=== PATIENT | female | born 1940 | race Caucasian/White ===

== ENCOUNTER 2016-12-27 03:42 | Emergency (ER) | payer MEDICARE, OTHER ==
[~2016-12-27] VITALS: Ht 154.9 cm; Wt 79.5 kg
[~2016-12-27 03:42] MED LIST: ASP81TEC PO; DIL4 PO; DULO30C PO; FLE10 PO; FURO20TA PO; GABA100C PO; LISI40TA13 PO; SYN75 PO; TRAZ-146 PO
[2016-12-27] MEDS ORDERED: Ondansetron 2 mg/mL 2 mL Inj IVPUSH ONE (03:45)
[2016-12-27] MEDS ORDERED: Nitroglycerin 2% 1 Gm Ointment TOPICAL ONE (03:45)
[2016-12-27 03:46] VITALS: BP 97/51; PULSE 76; RESP 16; O2SAT 95
[2016-12-27 04:01] LABS: BASOPHILS % (AUTO) 0.2 % (0-3); EOSINOPHILS % (AUTO) 0.4 % (0-5); MONOCYTES % (AUTO) 2.7 % (4-12); Mean Corpuscular Hemoglobin 30.8 pg (27.0-35.0); Mean Corpuscular Volume 95.2 fL (81-100); NEUTROPHILS % (AUTO) 75.4 % (40-74); Platelet Count 167 bil/L (150-400)
[2016-12-27 04:18] LABS: INR 1.03 ratio
[2016-12-27 04:24] LABS: TROPONIN T 0.01 ug/L (0.0-0.011)
--- NOTE | 2016-12-27 04:24 | ED.REPORT ---
HPI-Chest Pain 40 and Over Date of Service Dec 27, 2016 ED Provider: Zachary Limon MD Ms. Razo is a 76 y/o woman with history of congestive heart failure and hypertension who presents to the emergency department with chest pain that started prior to arrival when she woke up from her sleep with 10/10 whole chest pain that radiated straight to her back. It decreased to 5/10 when she was moved by EMS from her garage into the ambulance prior to receiving nitroglycerin. In route to the emergency department, she received 324 mg aspirin and one spray of nitroglycerin, which did not further relieve her chest pain, and EKG did not show any ST changes. Currently, she rates her pain as a 4 out of 10. She describes it as chest pressure that is mostly on the right side in her right shoulder, right arm, neck, and into her back. She has not experienced chest pain like this before. She was seen on December 19 at [facility] for chest pain and the discharge instructions that the patient has state that chest x-ray, CT scan and blood work were reassuring. She had associated nausea and "smelled something funny". She had heartburn last night. No vomiting, diaphoresis, or shortness of breath. She takes a baby aspirin daily. Her left leg has extensive bruising, but she does not remember a specific injury. Patient believes that she injured it in her sleep. At [facility], no DVT was seen. Patient has been taking prednisone for temporal arteritis since September 2016. Nursing Notes Stated Complaint: CHEST PAIN Chief Complaint: Chest Pain Nursing Notes Reviewed: Yes Allergies: Coded Allergies: Penicillins (Verified Allergy, Severe, swelling/itch, 01/14/11) Scheduled Aspirin-Expunged Drug, Do Not Renew! (Aspirin EC-Expunged Drug, Do Not Renew!) 81 Mg Tablet 81 MG PO DAILY Cyclobenzaprine-Expunged Drug, Do Not Renew! (Flexeril-Expunged Drug, Do Not Renew!) 10 Mg Tablet 10 MG PO TIDP Duloxetine-Expunged Drug, Do Not Renew! (Cymbalta-Expunged Drug, Do Not Renew!) 30 Mg Capsule.dr 30 MG PO HS Furosemide-Expunged Drug, Do Not Renew! (Lasix-Expunged Drug, Do Not Renew!) 20 Mg Tablet 20 MG PO AM Gabapentin-Expunged Drug, Do Not Renew! (Neurontin-Expunged Drug, Do Not Renew! ) 100 Mg Capsule 100 MG PO HS Levothyroxine-Expunged Drug, Do Not Renew! (Synthroid-Expunged Drug, Do Not Renew!) 75 Mcg Tablet 75 MCG PO AM Lisinopril-Expunged Drug, Do Not Renew! (Lisinopril-Expunged Drug, Do Not Renew! ) 40 Mg Tablet 40 MG PO AM Trazodone-Expunged Drug, Do Not Renew! (Trazodone-Expunged Drug, Do Not Renew!) 100 Mg Tablet 100 MG PO HS Scheduled PRN Hydromorphone-Expunged Drug, Do Not Renew! (Hydromorphone-Expunged Drug, Do Not Renew!) 4 Mg Tablet 4 MG PO QID PRN PRN General Time Seen by MD: 03:46 Chief Complaint Chest pain Hx Obtained From: Patient, EMS Arrived By: Ambulance Sudden in Onset?: Yes Past Medical History Past Medical History Temporal arteritis Reports: Congestive heart failure, GERD, Hypertension, Denies: Diabetes mellitus Past Surgical History Reports: Appendectomy, Hysterectomy, Tonsillectomy Reports: Gastric bypass Smoking History Never Smoker Social History Alcohol Use: Denies alcohol use Drug Use: Denies drug use Ambulatory Status Walker Review of Systems Constitutional: Denies: Chills, Fever Respiratory: Denies: Non-productive cough, Shortness of breath Cardiovascular: Reports: Chest pain, Edema, Denies: Palpitations GI: Reports: Nausea, Denies: Abdominal pain, Diarrhea, Vomiting Musculoskeletal: Reports: Back pain Skin: Reports Bruising, Denies Diaphoresis Neurologic: Denies: Abnormal movement, Focal weakness, Numbness Psychiatric: Denies: Change mental status Physical Exam Initial Vital Signs Vital Signs (First) Date Time Temp Pulse Resp B/P Pulse Ox O2 Delivery O2 Flow Rate FiO2 12/27/16 03:46 37.3 76 16 97/51 95 Room Air Initial VS: Reviewed Head / Eyes: Atraumatic, Normocephalic, PERRL ENT: Mucous membranes moist, Conjunctiva normal, No scleral icterus Skin: Warm, Dry, No cyanosis Neurologic: Alert, Oriented, Nonfocal Psychiatric: Mood/affect normal, Behavior normal, Normal thought content General/Constitutional: Awake, Alert, Cooperative Distress / Hydration: Positive: Distress mild Respiratory / Chest: Breath sounds NL, Breath sounds = bilat, No respiratory distress, No rales, No rhonchi, No wheezing Cardiovascular: Heart rate NL, Regular rhythm, Heart sounds NL, No gallop, No murmurs, No rubs Abdomen: Soft, Non-tender, No guarding, No rebound, BS normoactive Flank / Spine / Paraspinal: Positive: Thorac paraspinal tend... (Mid on right) Left Thigh: Positive: Ecchymosis present Right Leg / Calf: Positive: Swelling present... (Mild) Left Leg / Calf: Positive: Ecchymosis present, Swelling present... (Mild) Interpretation & Diagnostics Interpretation & Diagnostics: EKG shows RBBB but no changes compared to previous EKG, no concerning ST changes CXR shows surgical changes in the gastric region, small hiatal hernia, no acute cardiopulmonary changes Lab Results Interpretation Result Diagram: 12/27/16 0347 12/27/16 0347 Test 12/27/16 03:47 12/27/16 06:15 White Blood Count 9.0th/mm3 (3.8-10.1) Red Blood Count 3.73mil/mm3 (3.90-5.20) Hemoglobin 11.5g/dL (12.0-15.6) Hematocrit 35.5% (35.0-46.0) Mean Corpuscular Volume 95.2fL (81-100) Mean Corpuscular Hemoglobin 30.8pg (27.0-35.0) Mean Corpuscular Hemoglobin Concent 32.4% (32.0-37.0) Red Cell Distribution Width 16.0% (12.3-15.4) Platelet Count 167bil/L (150-400) Neutrophils (%) (Auto) 75.4% (40-74) Lymphocytes (%) (Auto) 16.9% (14-46) Monocytes (%) (Auto) 2.7% (4-12) Eosinophils (%) (Auto) 0.4% (0-5) Basophils (%) (Auto) 0.2% (0-3) Prothrombin Time 11.0sec (8.1-12.5) Prothromb Time International Ratio 1.03ratio Activated Partial Thromboplast Time 20.0sec (22.8-33.0) Sodium Level 138mEq/L (134-144) Potassium Level 3.3mEq/L (3.5-5.2) Chloride Level 94mEq/L (97-108) Carbon Dioxide Level 31mmol/L (18-29) Blood Urea Nitrogen 31mg/dL (8-27) Creatinine 0.85mg/dL (0.57-1.00) Estimat Glomerular Filtration Rate 93mL/min (>59) Glucose Level 122mg/dL (60-99) Calcium Level 10.7mg/dL (8.5-10.1) Magnesium Level 2.2mg/dL (1.6-2.6) Total Bilirubin 1.0mg/dL (0.0-1.2) Aspartate Amino Transf (AST/SGOT) 24U/L (0-50) Alanine Aminotransferase (ALT/SGPT) 24U/L (0-32) Alkaline Phosphatase 52U/L (25-165) Pro-B-Type Natriuretic Peptide 701.0pg/mL (0-738) Total Protein 7.1g/dL (6.4-8.4) Albumin 4.5g/dL (3.4-5.0) Re-Eval/Medical Decision Med Decision/Clinical Course 1. Chest pain -Patient received 324 mg of aspirin by EMS -Based on pt's symptoms of pain that radiated to her back and heartburn the night prior and a likely hiatal hernia on CXR, pt's chest pain likely has a gastric etiology -Initial troponin negative, repeat 3 hour troponin ordered -Initial EKG was not concerning for ACS but shows RBBB, repeat 3 hour EKG ordered -Since pt has been on prednisone since September 2016, pt was given 50 mg of Solu Cortef to aid in her stress response -Pt has received 1 dose of IV Protonix 40 mg -Patient also has received Zofran as needed for nausea, morphine for pain, and nitroglycerin -Patient was seen at [facility] on 12/19/2016 for chest pain as well -If repeat troponin and EKG remain unchanged and her pain has resolved, consider discharging patient home and advise patient to call her primary care provider Thursday morning in order to arrange a nuclear cardiac stress test with imaging as an outpatient. Time of Eval: 05:34 Patient Status: Condition improved Re-Evaluation/Progress Note: Patient is rechecked. She is informed of her lab results and recommended treatment plan. All of the patient's questions are addressed. She understands and agrees with the treatment plan. DDx: ACS, aortic dissection, pneumothorax, GERD,musculoskeletal, pulmonary embolism, pneumonia Discharge & Departure Shift Change Sign-Out Patient Care Transferred: Yes Referrals: Kg Spivey MD (PCP) Care Transferred to: Dr. Naranjo Care Transferred at: 06:00 Scribe Attestation Portions of this note were transcribed by Shelia Valdivia. I, Dr. Limon personally performed the history, physical exam and medical decision-making; I reviewed and confirmed the accuracy of the information in the transcribed note. Signed by: Radha Cuevas, 12/27/16 0600. Attending Statement As attending of record for this patient, I conducted an independent history and physical examination, and concur with the resident documentation as detailed above, and as amended. copies to: Kg Spivey MD, Marissa L DO Dec 27, 2016 04:24 Zachary Limon MD Dec 27, 2016 05:33 SHELIA VALDIVIA Dec 27, 2016 05:34
[2016-12-27] MEDS ORDERED: Ondansetron 2 mg/mL 2 mL Inj IVPUSH PRN (04:25)
[2016-12-27] MEDS ORDERED: Pantoprazole 4 mg/mL 10 mL Inj IVPUSH ONE (04:25)
[2016-12-27 04:35] LABS: Magnesium 2.2 mg/dL (1.6-2.6)
[2016-12-27 05:02] VITALS: BP 114/44; PULSE 64; RESP 18; O2SAT 95
[2016-12-27] MEDS ORDERED: Hydrocortisone 50 mg/mL 2 mL Inj IVPUSH ONE (06:00)
[2016-12-27] MEDS ORDERED: OMEP20TA86 PO (07:15)
[2016-12-27 07:47] VITALS: BP 112/46; PULSE 62; RESP 13; O2SAT 93
--- NOTE | 2016-12-27 08:01 | DRSVH ---
PROCEDURE: X-RAY CHEST ONE VIEW, PORTABLE ([id number]) INDICATIONS: Chest pain TECHNIQUE: One view of the chest was acquired. COMPARISON: [facility], CR, XR CHEST 2V AP/PA AND LAT, 12/19/2016, 8:12 AM. [facility], CR, CHEST 1VW (PORTABLE), 07/03/2014, 13:42. FINDINGS: Surgical changes and devices: Postsurgical changes in the left upper quadrant. Lungs and pleura: No pleural effusions or pneumothorax. Lungs are clear. Mediastinum: Mediastinal contours appear normal. Heart size is normal. Bones and chest wall: No suspicious bony lesions. Overlying soft tissues appear unremarkable. IMPRESSION: No acute cardiopulmonary disease. Dictated by: Jorge Penn M.D. on 12/27/2016 at 7:59 Approved by: Jorge Penn M.D. on 12/27/2016 at 8:00
== END 2016-12-27 07:35 | disposition home or self-care (01) ==
LOC: SED 03:42
DX: R10.13 Epigastric pain (principal); R07.89 Other chest pain; M54.6 Pain in thoracic spine; I11.0 Hypertensive heart disease with heart failure; I50.9 Heart failure, unspecified; K21.9 Gastro-esophageal reflux disease without esophagitis; Z88.0 Allergy status to penicillin
CPT/HCPCS: 36415; 71010; 80053; 83036; 83735; 83880; 84484; 85025; 85610; 85730; 93005; 96374; 96375; 99285; J1720; J2270; J2405

== ENCOUNTER 2017-04-22 09:34 | Inpatient (IN) | payer MEDICARE, OTHER ==
[2017-04-22] VITALS (8 sets, daily range): BP systolic 150–172; BP diastolic 68–73; PULSE 60–78; RESP 12–20; O2SAT 95–98
[~2017-04-22] VITALS: Ht 157.5 cm; Wt 86.1 kg
[~2017-04-22 09:34] MED LIST changes: +OMEP20TA86 PO
[2017-04-22] MEDS: 0.9% Sodium Chloride 1,000 ML IV SCH ×2 (11:33→16:47)
[2017-04-22] MEDS ORDERED: Polyethylene Glycol (PEG) 17 Gm Powder PO PRN (11:35)
[2017-04-22] MEDS ORDERED: Alum-Mag Hydrox-Simeth 30 mL Suspension PO PRN (11:35)
[2017-04-22] MEDS ORDERED: LATA2.5D6 BOTH_EYES (11:38)
[2017-04-22] MEDS ORDERED: METH2.5T (11:38)
[2017-04-22] MEDS ORDERED: OMEG1CAP56 PO (11:38)
[2017-04-22] MEDS ORDERED: TORS20TA3 PO (11:38)
[2017-04-22] MEDS ORDERED: FLUO40CA PO (11:38)
[2017-04-22] MEDS ORDERED: CARV3.122 PO (11:38)
[2017-04-22] MEDS ORDERED: ZOV800 PO (11:38)
[2017-04-22] MEDS ORDERED: PSYL1PAC10 PO (11:41)
[2017-04-22] MEDS ORDERED: ONDA-53 PO (11:41)
[2017-04-22] MEDS ORDERED: POTA20TA16 PO (11:41)
[2017-04-22] MEDS ORDERED: ASPI-973 PO (11:42)
[2017-04-22] MEDS ORDERED: LEVO75TA4 PO (11:43)
[2017-04-22] MEDS ORDERED: HYDR4TAB PO (11:43)
[2017-04-22] MEDS: Ondansetron 2 mg/mL 2 mL Inj IVPUSH PRN ×3 (11:46→16:07)
[2017-04-22 12:05] LABS: BASOPHILS % (AUTO) 0.2 % (0-3); EOSINOPHILS % (AUTO) 0.1 % (0-5); MONOCYTES % (AUTO) 0.7 % (4-12); Mean Corpuscular Hemoglobin 28.9 pg (27.0-35.0); Mean Corpuscular Volume 91.4 fL (81-100); NEUTROPHILS % (AUTO) 92.1 % (40-74); Platelet Count 428 bil/L (150-400)
[2017-04-22] MEDS ORDERED: HYDROmorphone 1 mg/mL Inj IVPUSH PRN ×2 (12:25→14:30)
--- NOTE | 2017-04-22 12:33 | NUR ---
Arrival to 1002 Direct admit from [facility] at 1115. Pt was drowsy upon arrival with no c/o pain or nausea. Family was not at bedside at this time so admission was done to the best of our abilities. Pain and violent dry heaving returned at 1200; 4mg Zofran given and was ineffective, additional 4mg given along with 1mg Dilaudid at 1230; pt was immediately relieved. Pt is hot to touch and requesting fan but is afebrile. Blood cultures were drawn. Family is now at bedside.
[2017-04-22 12:36] LABS: Magnesium 2.4 mg/dL (1.6-2.6)
--- NOTE | 2017-04-22 13:10 | PCM.HPMED ---
Subjective Date of Service April 22, 2017 Primary Provider: Admitting Physician: Marcell Lundberg MD Primary Care Physician: Kg Spivey MD Attending Physician: Marcell Lundberg MD Admit Status: Direct Admit, Admit to Bent Team Chief Complaint: Epigastric pain/ 2ddays Nausea and vomiting/2 days History of Present Illness: 76-year-old lady with past medical history of hypertension, hypothyroidism, history of ischemic colitis, history of gastric bypass surgery, history of pericarditis, chronic hypercalcemia, alpha-1 antitrypsin gene carrier, presented to [facility] with epigastric pain, nausea and vomiting of 2 days. Patient states she developed progressively worsening epigastric pain. Pain is continuous,10/10, nonradiating. She also has nausea and episodes of vomiting. Denies fever. Denies diarrhea. Denies other complaints. Denies alcohol drinking. Has history of cholecystectomy in 70s. [facility] ED course: Unremarkable vital signs wbc 12.7, hemoglobin 12.9, sodium 137, potassium 2.9, chloride 100, bicarbonate 33, BUN12, creatinine 0.84, protein 7.2, albumin 2.8, globulin 4.4, calcium 9.5 , corrected calcium 10.5 Tbili 0.8, alkaline phosphatase 101, ALT 25, AST 43,lipase 3032, troponin negative, CPK 21, magnesium 1.6 CT abdomen pelvis reportedly showed acute pancreatitis, no mention of dilated biliary system IV fluid given , Dilaudid for pain given. Potassium and magnesium repeleted. Transfer to [facility] due to bed unavailability Review of Systems: A comprehensive review of systems performed, pertinent positives and negatives included in history of present illness Allergies Coded Allergies: Penicillins (Verified Allergy, Severe, swelling/itch, 01/14/11) KISHOR Inhibitors (Verified Allergy, Intermediate, 04/22/17) Citalopram Analogues (Verified Allergy, Intermediate, 04/22/17) codeine (Verified Allergy, Intermediate, 04/22/17) gabapentin (Verified Allergy, Intermediate, 04/22/17) hydrochlorothiazide (Verified Allergy, Intermediate, 04/22/17) hydrocodone (Verified Allergy, Intermediate, 04/22/17) nitrofurantoin (Verified Allergy, Intermediate, 04/22/17) Home Medications Acyclovir when cold sores Aspirin 81 mg daily Coreg 3.125 mg bid Fluoxetine 40 mg by mouth daily Dilaudid 4 mg by mouth as needed for pain Latanoprost eyedrop Levothyroxine 75 daily [place]-3 1000 mg capsule daily before breakfast Torsemide 60 mg by mouth daily for history of pericardial effusion Potassium chloride 20 daily PMH alpha-1 antitrypsin gene carrier. Patient learned about it when her son was diagnosed with lung failure due to alpha-1 antitrypsin deficiency. Her is also carier . Son underwent double lung transplant 10 years ago at age 35 but transplant failing currently hypertension, hypothyroidism, history of ischemic colitis, history of gastric bypass surgery, history of pericarditis, chronic hypercalcemia, History of stroke at age 23 History of arthritis status post joint replacement Remote history of asthma Vitamin D deficiency Recurrent cold sores Surgical History Remote history of gastric bypass surgery for obesity in Hernia repair Appendectomy Cholecystectomy Right knee replacements Hysterectomy Carpal tunnel surgery bilateral Tonsillectomy Temporal artery biopsy right side 2015 Right-sided Cardiac catheterization february 2017 Family History Son with alpha 1 ANTITRYPSIN DEFICIENCY requiring lung transplant Social History Hx Alcohol Use: No Hx Substance Use: No Hx Tobacco Use: No Smoking Status: Never Smoker Exam Vital Signs Vital Sign - Last Date Time Temp Pulse Resp B/P Pulse Ox O2 Delivery O2 Flow Rate FiO2 04/22/17 12:15 69 04/22/17 11:14 35.9 20 150/68 97 Nasal Cannula 2.00 Exam Gen. patient is in pain, mild distress due to pain HEENT: Head is normocephalic atraumatic, Pupils equal and reactive, extraocular movements intact, Lungs clear to auscultation bilaterally Heart regular rate and rhythm without murmurs gallops or rubs Abdomen epigastric tenderness Extremities pulses are present dorsalis pedis posterior tibialis and radial. tSkin is warm and dry there are no rashes, Psych alert and oriented to person place and time Neuro cranial nerves II through XII are grossly intact Lymph: There is no lymphadenopathy appreciated in the cervical supra infraclavicular regions : joy in place Lab and Diagnostics Result Diagram: 04/22/17 1201 04/22/17 1201 X-Rays, CTs and MRIs CT abdomen and pelvis on 04/22 at [facility] shows acute pancreatitis Assessment & Plan 76-year-old lady with past medical history of hypertension, hypothyroidism, history of ischemic colitis, history of gastric bypass surgery, history of pericarditis, chronic hypercalcemia, alpha-1 antitrypsin gene carrier, presented to [facility] with epigastric pain, nausea and vomiting of 2 days. #Acute pancreatitis, poa -Unknown etiology. Probably related to her chronic hypercalcemia or remote history of gastric bypass surgery. Denies alcohol. Had cholecystectomy. -LFT normal but will do MRCP given unexplained pancreatitis -Initial lipase 3032, CT consistent with acute pancreatitis -Continue IV fluids, NS at 150ml/h -Pain control with Dilaudid WEAVE ROOM SUPERVISOR, uncontrolled with intermittent injections. Patient also on home Dilaudid by mouth -Nothing by mouth -Protonix IV twice a day, Zofran and Reglan # Hyperkalemia and low magnesium -Initial K 2.9 and magnesium 1.6 repleted -Due to diuretics. Patient on torsemide 60 mg by mouth daily for history of pericardial effusion # Hypercalcemia, chronic -Corrected calcium 10.5 - will send SPEP,vit D, PTH -Possible culprit of pancreatitis # Hypertension -hold home medications #Hypothyroidism Continue Synthroid # History of pericardial effusion -Hold diuretics for now. Will consider doing echo prior to discharge and decide on diuretics # Prophylaxis -Lovenox and Protonix Patient admitted under inpatient status with expected length of stay > 2 midnights for severity of present symptoms, complexities of treatment plan and risk for adverse events DNR/DNI , very faint from patient. She names her daughter Felicity as POA tel [phone] VTE Prophylaxis: Sub-Q Enoxaparin Resuscitation Status: DNR/DNI:Do Not Resuscitate/Intubate Time spent 60 minutes copies to: Kg Spivey MD, Melaku MD April 22, 2017 13:10
[2017-04-22] MEDS ORDERED: HYDROmorphone 1 mg/mL Inj IVPUSH ONE (13:50)
[2017-04-22] MEDS ORDERED: Lactated Ringer's 1,000 ML IV ONE (14:10)
[2017-04-22] MEDS ORDERED: MetoCLOpramide 5 mg/mL 2 mL Inj IVPUSH PRN (14:20)
[2017-04-22] MEDS: HYDROmorphone PCA 0.2 mg/mL 30 mL Inj IV PRN (14:51)
[2017-04-22] MEDS: Pantoprazole 4 mg/mL 10 mL Inj IVPUSH SCH (16:47)
--- NOTE | 2017-04-22 19:55 | DRSVH ---
PROCEDURE: MR ABDOMEN MRCP INDICATIONS: 76 year-old female with unexplained pancreatitis. TECHNIQUE: Coronal HASTE through the abdomen, axial 2-D FLASH in- and [id number], and breath-hold T2 FSE with fat saturation through the biliary system and pancreas. Oblique coronal and axial thin-slice HASTE, radial thick-slab HASTE centered on the extrahepatic bile ducts. Intravenous secretin: Not requested. COMPARISON: [facility], CT, CT ABDOMEN PELVIS WO CONTRAST, 10/31/2016, 6:57 PM. FINDINGS: Image quality: Several sequences are degraded by respiratory motion. Pancreas and biliary system: Intra- and extra-hepatic biliary ducts are non dilated, measuring up to 6 mm. No common bile duct stones. Pancreas is normal in morphology, with moderate surrounding inter stitial edema, extending into the right and left anterior pararenal spaces. The main pancreatic duct is nondilated, and therefore not well-visualized. No discrete peripancreatic fluid collections. Gall bladder is surgically absent. Other solid organs: Liver and spleen are normal in size. No adrenal nodules. Both kidneys are norm al in size, without hydronephrosis. Inferior left renal cortical cyst measures 3.9 x 2.7 cm. Nodes and vessels: No retroperitoneal or mesenteric adenopathy by size criteria. Aorta and inferior vena cava are normal in size. Bowel and peritoneum: Unenhanced bowel loops are normal in caliber. Patient is status post presumed gastric bypass surgery, better seen on comparison CT scan images. No free fluid. Lung bases: No basal pleural effusions. Heart size is normal. Bones and soft tissues: No ventral hernias. Bone marrow is of normal overall signal. IMPRESSION: 1. Findings of acute pancreatitis, without discrete peripancreatic fluid collections. 2. No intra-or extrahepatic biliary ductal dilation or stones, status post cholecystectomy. Pancreati c ducts are nondilated and not well-seen, and the 3. Nondistended main pancreatic duct is not well-visualized, and therefore any congenital variants rosas ch as pancreas divisum cannot be excluded. 4. 3.9 cm inferior left renal cortical simple cyst. Dictated by: Randy Sahu M.D. on 04/22/2017 at 19:43 Approved by: Randy Sahu M.D. on 04/22/2017 at 19:54
--- NOTE | 2017-04-22 23:22 | NUR ---
Return to floor Patient returned from MRI at 190. Report from day shift nurse states that patient received 1mg Ativan IVP due to claustrophobia. When patient returned to floor she was very sleepy and difficult to awaken. SUPERVISOR LIVESTOCK YARD applied and Tele placed back on. classroom monitor states HR SR 76. O2 sats 98% on 2L O2 via NC. Allowed patient to rest until 2029 and then attempted to wake. Stimulation was necessary to awaken patient. Patient was confused and asked where she was. Reoriented patient to her room, and shortly after she fell back to sleep. Patient is currently sleeping and appears comfortable. SUPERVISOR LIVESTOCK YARD applied; HR 87 and O2 sats 96%. Will continue to closely monitor. Addendum: 04/23/17 at 0056 by SHELTON GEE RN Patient has become more alert as the shift has progressed, and has been call light appropriate. Complains of abdominal pain, encouraged to use WELT DRAWER for pain control. Difficult to assess pt due to hearing aid battery being ,and severe difficulty hearing. Patient states will have daughter bring new hearing aid battery in the morning. Care continues
[2017-04-23] VITALS (11 sets, daily range): BP systolic 173–192; BP diastolic 81–104; PULSE 94–108; RESP 16–24; O2SAT 96–98
[2017-04-23] MEDS: 0.9% Sodium Chloride 1,000 ML IV SCH ×3 (00:29→20:16)
--- NOTE | 2017-04-23 00:56 | NUR ---
BP Patients BP has been elevated this evening. 172/73 and 174/81. Patient encouraged to use SELF PAY COLLECTOR to control abdominal pain, and has been appropriate doing so. paged of high BPs. No new orders at this time. Care continues.
[2017-04-23] MEDS: Ondansetron 2 mg/mL 2 mL Inj IVPUSH PRN ×2 (02:12→10:06)
--- NOTE | 2017-04-23 05:34 | NUR ---
HR/SOB Patients HR has increased as the night progressed, currently at 105. Pt complains of slight SOB, and lungs sound slightly decreased. Denies chest pain. paged and states to decrease fluid rate to 100cc/hr. Will share this with the day shift nurse. Care continues.
[2017-04-23 06:14] LABS: Vitamin D, 25-Hydroxy 16.9 ng/mL (30.0-100.0)
[2017-04-23 07:16] LABS: BASOPHILS % (AUTO) 0.1 % (0-3); EOSINOPHILS % (AUTO) 0 % (0-5); MONOCYTES % (AUTO) 2.1 % (4-12); Mean Corpuscular Volume 86.5 fL (81-100); NEUTROPHILS % (AUTO) 93.2 % (40-74); Platelet Count 463 bil/L (150-400)
[2017-04-23 07:45] LABS: Magnesium 2.2 mg/dL (1.6-2.6); Phosphorus 3.7 mg/dL (2.5-4.9)
[2017-04-23] MEDS: Pantoprazole 4 mg/mL 10 mL Inj IVPUSH SCH ×2 (08:59→16:53)
[2017-04-23] MEDS: Omega-3 Fatty Acids 1,000 mg Capsule PO SCH (09:59)
--- NOTE | 2017-04-23 10:25 | NUR ---
Hearing Aid: Pt's caregiver taking Patients hearing aid home. 09/23 am. Addendum: 04/23/17 at 1053 by FRANCISCO BOWIE RN Cancel above note: Hearing AId is still at bedside.
--- NOTE | 2017-04-23 11:40 | PCM.PNMED ---
Subjective Date of Service April 23, 2017 Subjective Continues to have epigastric pain. Nausea improving. Will start clear liquid diet. Lower IV fluid. Exam Vital Signs Vital Sign - Last Date Time Temp Pulse Resp B/P Pulse Ox O2 Delivery O2 Flow Rate FiO2 04/23/17 09:47 36.7 107 18 183/104 97 Nasal Cannula 2.00 Intake and Output 04/22/17 04/22/17 04/23/17 Cumulative From/Thru 15:00 23:00 07:00 04/22/17 12:46 - 04/23/17 06:14 Intake Total 1527 ml 1622 ml 3149 ml Output Total 400 ml 450 ml 850 ml Balance 1127 ml 1172 ml 2299 ml Intake Oral 0 ml 0 ml IV Total 1527 ml 1622 ml 3149 ml Output Urine Total 400 ml 450 ml 850 ml # Bowel Movements 0 0 Exam Gen. patient is in pain, mild distress due to pain HEENT: Head is normocephalic atraumatic, Pupils equal and reactive, extraocular movements intact, Lungs clear to auscultation bilaterally Heart regular rate and rhythm without murmurs gallops or rubs Abdomen epigastric tenderness Extremities pulses are present dorsalis pedis posterior tibialis and radial. tSkin is warm and dry there are no rashes, Psych alert and oriented to person place and time Neuro cranial nerves II through XII are grossly intact Lymph: There is no lymphadenopathy appreciated in the cervical supra infraclavicular regions : joy in place IVs and Medications Medications Reviewed: Medications were reviewed in detail Lab and Diagnostics Result Diagram: 04/23/17 0702 04/23/17 0702 X-Rays, CTs and MRIs CT abdomen and pelvis on 04/[address] [facility] shows acute pancreatitis PROCEDURE: MR ABDOMEN MRCP INDICATIONS: 76 year-old female with unexplained pancreatitis. IMPRESSION: 1. Findings of acute pancreatitis, without discrete peripancreatic fluid collections. 2. No intra-or extrahepatic biliary ductal dilation or stones, status post cholecystectomy. Pancreatic ducts are nondilated and not well-seen, and the 3. Nondistended main pancreatic duct is not well-visualized, and therefore any congenital variants such as pancreas divisum cannot be excluded. 4. 3.9 cm inferior left renal cortical simple cyst. Dictated by: Randy Sahu M.D. on 04/22/2017 at 19:43 Assessment & Plan 76-year-old lady with past medical history of hypertension, hypothyroidism, history of ischemic colitis, history of gastric bypass surgery, history of pericarditis, chronic hypercalcemia, alpha-1 antitrypsin gene carrier, presented to [facility] with epigastric pain, nausea and vomiting of 2 days. #Acute pancreatitis, poa -Unknown etiology. Probably related to her chronic hypercalcemia or remote history of gastric bypass surgery. Denies alcohol. Had cholecystectomy. -LFT normal ,MRCP no biliary obstruction -Initial lipase 3032, CT consistent with acute pancreatitis -Continue IV fluids, NS at 60 ml/h now. 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 Patient also on home Dilaudid by mouth -Start clear liquid diet and advance as tolerated -Protonix IV twice a day, Zofran and Reglan # Hyperkalemia and low magnesium -Initial K 2.9 and magnesium 1.6 repleted -Due to diuretics. Patient on torsemide 60 mg by mouth daily for history of pericardial effusion # Hypercalcemia, chronic -Corrected calcium 10.5 - will send SPEP,vit D, PTH -Possible culprit of pancreatitis -Vitamin D level 16, started vitamin D # Hypertension -held home medications. Resume today #Hypothyroidism Continue Synthroid # History of pericardial effusion -Hold diuretics for now. Will get echo and decide on diuretics # Prophylaxis -Lovenox and Protonix Patient admitted under inpatient status with expected length of stay > 2 midnights for severity of present symptoms, complexities of treatment plan and risk for adverse events DNR/DNI , verified from patient. She names her daughter Felicity as POA tel [phone] Disposition discharge in 2- 3 days VTE Prophylaxis: Sub-Q Enoxaparin VTE Mechanical Devices: Intermittant Pneumatic CD Resuscitation Status: DNR/DNI:Do Not Resuscitate/Intubate Marcell Lundberg MD April 23, 2017 11:40
--- NOTE | 2017-04-23 13:47 | DRSVH ---
PROCEDURE: X-RAY CHEST ONE VIEW, PORTABLE ([id number]) INDICATIONS: dyspnea TECHNIQUE: One view of the chest was acquired. COMPARISON: [facility], CR, XR CHEST 1VW (PORTABLE), 12/27/2016, 3:41. FINDINGS: Surgical changes and devices: Multiple epigastric surgical clips as well as clips in the right upper quadrant. Lungs and pleura: No pleural effusions or pneumothorax. Lung volumes are low and bibasilar airspace opacities present. Mediastinum: Mediastinal contours appear normal. Heart size is normal. Bones and chest wall: No suspicious bony lesions. Overlying soft tissues appear unremarkable. IMPRESSION: Bibasilar atelectasis versus aspiration or pneumonia. Correlate clinically. Dictated by: Xavi Spencer RRA Interpreted: Janelle Tang MD on 04/23/2017 at 13:45 Transcribed by: MARCOS on 04/23/2017 at 13:47 Approved by: Janelle Tang MD, PhD on 04/23/2017 at 15:23
--- NOTE | 2017-04-23 15:02 | NUR ---
GI Diet advanced to clears. Tolerates ice water, retches with any other fluids. No real emesis. Reports abd pain 05/09, I reinforced teaching about PILLOWCASE SEWER. Cortez discontinued, awaiting spontaneous voidl
--- NOTE | 2017-04-23 17:06 | DRSVH ---
[facility] [address] [place] [place] [address] Echocardiogram Report Name: ELLE MARINELLItodilia Hernandez ate: 04/23/2017 Height: 62 in Hospital Exam Location: [facility] Weight: 150 lb Gender: Female BSA: 1.7 m2 : 1940 Age: 76 yrs BP: 175/82 mmHg Reason For Study: History of pericardial effusion Ordering Physician: Performed By: Atiya FERNANDOIST [facility] Interpretation Summary Left ventricular wall thickness is borderline increased. The ejection fraction is estimated to be 60-65%. The aortic valve is moderately calcified. There is moderate aortic stenosis. There is mild aortic regurgitation. Right ventricular systolic pressure is estimated to be 32 mmHg plus the clinically estimated CVP which cannot be estimated on this exam. Procedure: A two-dimensional transthoracic echocardiogram with color flow and Doppler was performed. The study quality was technically difficult. A contrast injection of Definity was performed to improve assessment of LV function. There is no prior echocardiogram noted for this patient. The patient was in normal sinus rhythm during the exam. Left Ventricle: The left ventricle is normal in size. Left ventricular wall thickness is borderline increased. The ejection fraction is estimated to be 60-65%. Assessment of diastolic parameters indicates a relaxation abnormality of the left ventricle, consistent with normal filling pressures. Right Ventricle: The right ventricle is not well visualized. Atria: Both atria are normal in size. Mitral Valve: There is mild mitral annular calcification. There is trace mitral regurgitation. Aortic Valve: The aortic valve is moderately calcified. The aortic valve is trileaflet. The calculated aortic valve area is 1.1 cm2. The aortic valve area is 1.2 centimeters squared by planimetry. The peak aortic velocity is 3.4 m/sec. The aortic valve mean gradient is 22 mmHg. There is moderate aortic stenosis. There is mild aortic regurgitation. Tricuspid Valve: The tricuspid valve leaflets are thin and pliable. There is trace tricuspid regurgitation. Right ventricular systolic pressure is estimated to be 32 mmHg plus the clinically estimated CVP which cannot be estimated on this exam. Pulmonic Valve: The pulmonic valve is not well visualized. There is a trace or physiologic amount of pulmonic regurgitation. Great Vessels: The aortic root is normal size. The ascending aorta is mildly enlarged. The inferior vena cava was not visualized. Pericardium/ Pleura There is no pericardial effusion. MMode/2D Measurements & Calculations LVIDd: 4.0 cm RA long axis: 4.3 cm LVOT diam LVIDs: 2.6 cmLA A2 area: 12.8 cm FS: 35.3 % LA A4 area: 13.4 cm RA area: 8.9 cm AoV Opening IVSd: 1.3 cm LA length (vol): 4.8 cm RA vol: 15.8 ml LVPWd: 1.0 cmLA vol: 30.3 ml RA : 9.4 ml/m2 Ao root diam LA vol index: 17.9 ml/m2 Aortic Jxn asc Aorta Diam PATRICIA (plan) LV french. diameter/BSA LV sys. diameter/BSA (cm/m^2): 2.3 (cm/m^2): 1.5 : 1.2 cm2 Doppler Measurements & Calculations Ao V2 max MV E max luigi MV E/A: 0.45 TR max luigi : 340.8 cm/sec : 46.8 cm/sec Med Peak E' Luigi : 283.6 cm/sec Ao max PG MV A max luigi TR max PG : 46.4 mmHg : 103.1 cm/sec E/E' med: 9.5 : 32.2 mmHg Ao mean PG MV P1/2t: 43.9 msec PA V2 max : 22.0 mmHg : 90.3 cm/sec LVOT Max Luigi PA mean PG : 103.0 cm/sec PATRICIA(I,D): 1.1 cm PA Accel Time sev ratio : 0.09 sec MV dec time MV P1/2t max luigi Ao V2 mean LV V1 max PG : 0.15 sec : 212.1 cm/sec MVA(P1/2t): 5.0 cm2 Ao V2 VTI: 54.9 cmLV V1 VTI PATRICIA(V,D): 0.83 cm2: 21.3 cm PA V2 mean PATRICIA indexed to BSA : 59.1 cm/sec (cm^2/m^2): 0.63 Electronically signed by: Ronan Schafer on Reading Physician:04/23/2017 05:05 PM
--- NOTE | 2017-04-23 17:20 | NUR ---
UOP Cortez discontinued. Spontaneous void of only 75mL with PVRBScan 24mL. Prior to that, only 200 mL urine from Cortez this shift. paged; aware. NS increased to 125mL/hr per new order.
--- NOTE | 2017-04-23 22:52 | ABG ---
DateTimeAnalyzed 22:48:00 -_ pH ____7.392 - 7.350 7.450 pCO2 ___45.4__ -mmHg 35.0 45.0 pO2 ___74.2__ -mmHg 69.0 116 HCO3- ___27.0__ -mmol/L 22.0 26.0 ABE ____2.1__ -mmol/L -2.0 2.0 tHb ___13.4__ -g/dL O2Hb ___93.0__ -% COHb ____1.9__ -% MetHb ____0.7__ -% sO2 ___95.5__ -% FIO2 ___34.0__ -% Drawn By MK - Date/Time Notified____ 22:51:00 -_ Liter_Flow ____4.0__ -L/min Oxygen Device 1 __CANNULA - Notified By MK - B 755 -mmHg tO2 ___17.6__ -Vol% Hay test _Positive -
[2017-04-24] VITALS (13 sets, daily range): BP systolic 145–185; BP diastolic 73–97; PULSE 90–112; RESP 18–24; O2SAT 93–97
[2017-04-24 01:35] LABS: APPEARANCE,URINE SLIGHTLY CLOUDY (CLEAR,HAZY); COLOR,URINE DARK YELLOW (YELLOW); OCCULT BLOOD,URINE TRACE (NEGATIVE)
[2017-04-24 01:36] LABS: UROBILINOGEN,URINE NORMAL (NORMAL)
--- NOTE | 2017-04-24 01:54 | NUR ---
Transfer to 2009 Patients BP at beginning of shift, 1999, was 192/99. Hospitalist notified. Evening dose of carvedilol was given, and upon reassessment BP was 188/83. Patient denies CP but does complains of SOB. Tele reports ST W/ IVCD. Sats >95% on 2L of O2 via NC but patient still having difficulty catching breath. Breathing is labored and accessory muscles are being used. RR 20-24. At 2230 BP again was 192/78, HR 104, RR 22 and o2 98% on 2L O2 via NC. Patient also appears to be more confused as the night progressed. RT contacted to assess, and ABGs were drawn. Hospitalist notified and states for patient to be transferred to second floor. Report given to Maranda Galarza RN, and patient was transferred at 2350. Belongings and chart with patient. Daughter ENRIQUE Pruitt, was contacted and notified of new room number. Care continues.
[2017-04-24] MEDS: 0.9% Sodium Chloride 1,000 ML IV SCH ×3 (04:12→20:54)
[2017-04-24 04:55] LABS: BASOPHILS % (AUTO) 0.1 % (0-3); EOSINOPHILS % (AUTO) 0.3 % (0-5); MONOCYTES % (AUTO) 3.5 % (4-12); Mean Corpuscular Hemoglobin 29.1 pg (27.0-35.0); Mean Corpuscular Volume 86.8 fL (81-100); NEUTROPHILS % (AUTO) 92.2 % (40-74); Platelet Count 326 bil/L (150-400)
[2017-04-24 05:35] LABS: Magnesium 2.1 mg/dL (1.6-2.6)
--- NOTE | 2017-04-24 06:34 | NUR ---
Arrived to unit/ Respiratory/UOP Pt arrived to [facility] 2009 around midnight from [facility], report from [facility] RN. Pt appeared dyspneic and on 6L NC, BP still elevated, oriented to self/place as [facility] nurse reported. Pt very hard of hearing and it is necessary to write things down for pt to know what staff is saying. Hearing aids not working. Pt alert and voicing needs, denied pain on arrival. MD notified of ongoing confusion and also that BP still elevated, no new orders given. NS fluids continue @125, MD aware. O2 titrated down to 3L NC, sats maintaining mid 90s, monitored on STRAPPING MACHINE TENDER. Pt still has labored breathing and appeared slightly wheezy after getting up to [facility] this morning. notified and ordered PRN nebs, pending RT to give. UA sent, urine very keyshawn w/ odor and pt only able to go very small amounts at a time. Bladder scan done by QUALITY ASSURANCE ENGINEER not showing residual. Culture pending. Tele STach 100s, up to 120s w/ activity.
[2017-04-24] MEDS: HYDROmorphone PCA 0.2 mg/mL 30 mL Inj IV PRN (07:54)
[2017-04-24] MEDS: Pantoprazole 4 mg/mL 10 mL Inj IVPUSH SCH ×2 (08:22→18:02)
[2017-04-24] MEDS: Omega-3 Fatty Acids 1,000 mg Capsule PO SCH (08:30)
[2017-04-24] MEDS: Ondansetron 2 mg/mL 2 mL Inj IVPUSH PRN ×2 (09:05→11:28)
--- NOTE | 2017-04-24 10:18 | NUR ---
Respiratory Pt assessed found supine in bed on 3LNC. Sat 97%, HR 95%, RR 22, BS clear bilaterally. Pt did not respond to arousal. BS/Oxygen did not indicate Tx at this time. Pt does have POA and is mouth breathing.
[2017-04-24] MEDS: Meropenem Inj 1,000 MG in 0.9% Sodium Chloride 50 ML IV SCH (10:22)
--- NOTE | 2017-04-24 14:47 | PCM.PNMED ---
Subjective Date of Service April 24, 2017 Rodrigo Razo is a 76-year-old lady with past medical history of hypertension, hypothyroidism, ischemic colitis, gastric bypass surgery, pericarditis, chronic hypercalcemia, alpha-1 antitrypsin gene carrier, presented to [facility] with epigastric pain, nausea and vomiting of 2 days. Currently under treatment for pancreatitis. Hospital day #3 Overnight: The patient was transferred to the [facility] due to respiratory distress. Today: The patient is having 7/10 abdominal pain but states it is improved as compared to yesterday. The patient noted nausea, vomiting, loss of apatite. She denies any shortness of breath, fever, chills, or chest pain. A comprehensive review of systems could not be completed due to the patient's severe hearing deficit. Exam Vital Signs Vital Sign - Last Date Time Temp Pulse Resp B/P Pulse Ox O2 Delivery O2 Flow Rate FiO2 04/24/17 12:00 36.5 90 18 168/75 96 Nasal Cannula 3.00 Intake and Output 04/23/17 04/23/17 04/24/17 Cumulative From/Thru 15:00 23:00 07:00 04/22/17 12:46 - 04/24/17 06:42 Intake Total 776 ml 1777 ml 5702 ml Output Total 275 ml 425 ml 1550 ml Balance 501 ml 1352 ml 4152 ml Intake Oral 100 ml 220 ml 320 ml IV Total 676 ml 1557 ml 5382 ml Output Urine Total 275 ml 425 ml 1550 ml # Bowel Movements 0 Exam Gen. obese elderly woman in no acute distress resting comfortably in a hospital bed HEENT: Head is normocephalic atraumatic, Pupils equal and reactive, extraocular movements intact, significant hearing loss bilaterally Lungs: clear to auscultation bilaterally without significant crackles Heart: regular rate and rhythm without murmurs gallops or rubs Abdomen: epigastric tenderness Extremities pulses are present dorsalis pedis posterior tibialis and radial. Skin is warm and dry there are no rashes, Psych alert and oriented to person place and time Neuro cranial nerves II through XII are grossly intact Lymph: There is no lymphadenopathy appreciated in the cervical supra infraclavicular regions : joy in place IVs and Medications Medications Reviewed: Medications were reviewed in detail Lab and Diagnostics Result Diagram: 04/24/17 0450 04/24/17 0450 X-Rays, CTs and MRIs CT abdomen and pelvis on 04/22 at [facility] shows acute pancreatitis MR ABDOMEN MRCP IMPRESSION: 1. Findings of acute pancreatitis, without discrete peripancreatic fluid collections. 2. No intra-or extrahepatic biliary ductal dilation or stones, status post cholecystectomy. Pancreatic ducts are nondilated and not well-seen, and the 3. Nondistended main pancreatic duct is not well-visualized, and therefore any congenital variants such as pancreas divisum cannot be excluded. 4. 3.9 cm inferior left renal cortical simple cyst. Dictated by: Randy Sahu M.D. on 04/22/2017 at 19:43 Assessment & Plan Harmeet Razo is a 76-year-old lady with past medical history of hypertension, hypothyroidism, ischemic colitis, gastric bypass surgery, pericarditis, chronic hypercalcemia, alpha-1 antitrypsin gene carrier, presented to [facility] with epigastric pain, nausea and vomiting of 2 days. Currently under treatment for pancreatitis. Hospital day #3 Acute pancreatitis, present on admission, active -Unknown etiology. Possibly related to her chronic hypercalcemia or remote history of gastric bypass surgery. Denies alcohol. Had cholecystectomy. -LFTs normal, MRCP no biliary obstruction -Initial lipase 3032, CT consistent with acute pancreatitis -Continue IV fluids, NS at 125 ml/h with goal hematocrit of less than 40 as well as patient can tolerate -Pain control with Dilaudid COMMUNICATION ASSISTANT, uncontrolled with intermittent injections. Patient also on home Dilaudid by mouth -Start clear liquid diet and advance as tolerated -Protonix IV twice a day, Zofran and Reglan -Consider repeat CT if patient should deteriorate, white count should increase or if she should spike a fever Hypokalemia and low magnesium, present on admission, repleted -Initial K 2.9 and magnesium 1.6 -Due to diuretics. Patient on torsemide 60 mg by mouth daily for history of pericardial effusion Mild hypercalcemia, chronic -Corrected calcium 10.5 -SPEP pending -PTH normal -Possible culprit of pancreatitis -Vitamin D level 16, started vitamin D Chronic problems present on admission: Hypertension -Held home medications. Resume today Hypothyroidism -Continue Synthroid History of pericardial effusion ,not evident on current ECHO -Hold diuretics for now. Prophylaxis -Lovenox and Protonix DNR/DNI , verified from patient. She names her daughter Felicity as POA tel [phone] Disposition discharge in 2-3 days VTE Prophylaxis: Sub-Q Enoxaparin VTE Mechanical Devices: Intermittant Pneumatic CD Resuscitation Status: DNR/DNI:Do Not Resuscitate/Intubate Time spent 35 minutes Attending Statement I interviewed and examined the patient on rounds today. I agree with the assessment and plan as stated above. Etelvina Gutierrez DO April 24, 2017 14:20 Tong Rainey MD April 25, 2017 07:19
--- NOTE | 2017-04-24 19:18 | NUR ---
Somnolence Pt very somnolent this morning. Repeated touch to awaken, but falls right back to sleep.Was able to communicate that she is having abdominal pain and occasional nausea. Pt has OPTIMIZATION ANALYST available for pain control. SPO2 in high 90s for shift RR 18.
[2017-04-25] VITALS (9 sets, daily range): BP systolic 124–180; BP diastolic 71–91; PULSE 80–105; RESP 20–28; O2SAT 96–99
[2017-04-25] MEDS: Meropenem Inj 1,000 MG in 0.9% Sodium Chloride 50 ML IV SCH ×5 (00:08→17:40)
[2017-04-25] MEDS: Ondansetron 2 mg/mL 2 mL Inj IVPUSH PRN (00:51)
--- NOTE | 2017-04-25 03:05 | NUR ---
PAIN / NAUSEA Patient drowsy at the beginning of the shift, used WRINKLE CHASER button x 2. Waking up and conversant by mid-shift. Intermittent nausea, no emesis. prn Zofran effective. Tolerating jello, apple juice and sips of ice water. CTM for changes.
[2017-04-25] MEDS: 0.9% Sodium Chloride 1,000 ML IV SCH ×2 (05:13→20:07)
[2017-04-25 08:50] LABS: Mean Corpuscular Hemoglobin 28.7 pg (27.0-35.0); Mean Corpuscular Volume 89.8 fL (81-100)
[2017-04-25] MEDS: Pantoprazole 4 mg/mL 10 mL Inj IVPUSH SCH ×2 (09:53→16:30)
--- NOTE | 2017-04-25 12:20 | PCM.PNMED ---
Subjective Date of Service April 25, 2017 Rodrigo Razo is a 76-year-old lady with past medical history of hypertension, hypothyroidism, ischemic colitis, gastric bypass surgery, pericarditis, chronic hypercalcemia, alpha-1 antitrypsin gene carrier, presented to [facility] with epigastric pain, nausea and vomiting of 2 days. Currently under treatment for pancreatitis. Hospital day #4 No overnight events. Patient and family report general symptomatic improvement. Appetite is reduced but she is tolerating enteral intake. No nausea or vomiting. No dyspnea. Exam Vital Signs Vital Sign - Last Date Time Temp Pulse Resp B/P Pulse Ox O2 Delivery O2 Flow Rate FiO2 04/25/17 11:48 36.6 80 24 180/75 97 Nasal Cannula 2.00 Intake and Output 04/24/17 04/24/17 04/25/17 Cumulative From/Thru 15:00 23:00 07:00 04/22/17 12:46 - 04/25/17 06:04 Intake Total 1607 ml 1785 ml 9094 ml Output Total 200 ml 650 ml 2400 ml Balance 1407 ml 1135 ml 6694 ml Intake Oral 100 ml 360 ml 780 ml IV Total 1507 ml 1425 ml 8314 ml Output Urine Total 200 ml 650 ml 2400 ml # Voids 2 2 # Bowel Movements 0 0 Exam General: Centrally obese elderly woman, hard of hearing but in no acute distress HEENT: sclerae anicteric, oral mucosa moist Neck: no apparent JVD Chest: clear to auscultation Cardiac: S1S2, no murmur Abdomen: BS normal, non-tender to palpate Extremities: No significant edema Neuro: Intermittently very somnolent, cranial nerves symmetric, very hard of hearing, motor strength 4/5 truncal weakness IVs and Medications Medications Reviewed: Medications were reviewed in detail Lab and Diagnostics Result Diagram: 04/25/1782404/25/17824 X-Rays, CTs and MRIs CT abdomen and pelvis on 04/22 at [facility] shows acute pancreatitis MR ABDOMEN MRCP IMPRESSION: 1. Findings of acute pancreatitis, without discrete peripancreatic fluid collections. 2. No intra-or extrahepatic biliary ductal dilation or stones, status post cholecystectomy. Pancreatic ducts are nondilated and not well-seen, and the 3. Nondistended main pancreatic duct is not well-visualized, and therefore any congenital variants such as pancreas divisum cannot be excluded. 4. 3.9 cm inferior left renal cortical simple cyst. Dictated by: Randy Sahu M.D. on 04/22/2017 at 19:43 Assessment & Plan Harmeet Razo is a 76-year-old lady with past medical history of hypertension, hypothyroidism, ischemic colitis, gastric bypass surgery, pericarditis, chronic hypercalcemia, alpha-1 antitrypsin gene carrier, presented to [facility] with epigastric pain, nausea and vomiting of 2 days. Currently under treatment for pancreatitis. Hospital day #4 Acute pancreatitis, present on admission, active. Unknown etiology. Possibly related to her chronic hypercalcemia. LFTs normal, MRCP no biliary obstruction. Initial lipase 3032, CT consistent with acute pancreatitis. Clinical course generally improving but with secondary infection of urine and rising WBC count -Continue IV fluids, reduce NS at 80 ml/h with goal hematocrit of less than 40 as well as patient can tolerate -Discontinue Dilaudid CAR RIDER, continue Dilaudid by mouth -Diet advance as tolerated; encourage enteral nutrition - Zofran and Reglan as needed -Repeat CT due to increased leukocytosis. Rule out infected necrosis. Secondary infection, not present on admission. Significant pyuria with urine culture greater than 100,000 Gnr. - On meropenem - Await culture and sensitivity to adjust antibiotics Hypokalemia and low magnesium, present on admission, repleted. Initial K 2.9 and magnesium 1.6 -Monitor BMP periodically Mild hypercalcemia, chronic. Corrected calcium 11 on admission. -SPEP pending -PTH normal -Vitamin D level 16, started vitamin D Chronic problems present on admission: Hypertension -Held home medications. Resume today Hypothyroidism -Continue Synthroid History of pericardial effusion ,not evident on current ECHO -Hold diuretics for now. Prophylaxis -Lovenox and Protonix DNR/DNI , verified from patient. She names her daughter Felicity as POA tel [phone] Disposition discharge in 2-4 days VTE Prophylaxis: Sub-Q Enoxaparin VTE Mechanical Devices: Intermittant Pneumatic CD Resuscitation Status: DNR/DNI:Do Not Resuscitate/Intubate Time spent 40 minutes in patient assessment including counseling family at bedside. Tong Rainey MD April 25, 2017 12:20
--- NOTE | 2017-04-25 12:57 | DRSVH ---
PROCEDURE: CT ABDOMEN WITH CONTRAST ([id number]) INDICATIONS: acute pancreatitis, rising WBC count TECHNIQUE: After the administration of oral and intravenous contrast, 5 mm thick sections acquired from the diap hragms to the iliac crests. 5 mm thick coronal and sagittal reformats were acquired. For radiation dose reduction, the following was used: automated exposure control, adjustment of mA and/or kV accor ding to patient size. COMPARISON: [facility], MR, MR ABD MRCP, 04/22/2017, 17:56. FINDINGS: Image quality: Excellent. Lung bases: Trace bilateral pleural effusions are present. Lung bases are otherwise clear. Heart siz e is normal. Solid organs: Liver and spleen are normal in size and enhancement. Gallbladder is not seen. Biliar y system is non dilated. Pancreas enhances normally. Peripancreatic fluid has decreased slightly, a llowing for differences in modality. No loculated peripancreatic fluid collections to indicate absces s. No adrenal nodules. Kidneys are normal in size, without hydronephrosis. Peritoneum and bowel: Status post gastric bypass. Lapband appears to be present. Contrast enhanced b owel loops appear normal in caliber. No free fluid or air. Nodes and vessels: No retroperitoneal or mesenteric adenopathy by size criteria. Aorta and inferior vena cava are normal in size. Bones: No suspicious bony lesions. No vertebral body compression fractures. Miscellaneous: No ventral hernias. IMPRESSION: 1. Resolving peripancreatic fluid. No abscess. Dictated by: Dawit Fortune M.D. on 04/25/2017 at 12:51 Approved by: Dawit Fortune M.D. on 04/25/2017 at 12:56
--- NOTE | 2017-04-25 14:22 | NUR ---
NUTRITION ASSESSMENT: ASSESS:76 YO female admitted with acute pancreatitis, possibly related to chronic hypercalcemia. LFTs normal, MRCP reports no biliary obstruction. Initial lipase 3032, CT consistent with acute pancreatitis. Clinical course generally improving but now with secondary infection of urine and rising WBC count. Diet advanced to general today; PO intake not yet recorded. PMHx:HTN, hypothyroid, ischemic colitis, gastric bypass, pericarditis, hearing loss, hypercalcemia. DIET:General. LABS: Reviewed. Cr 0.34, Glu 100. MEDICATIONS: Reviewed. Metamucil, synthroid. NUTRITION FOCUSED PHYSICAL ASSESSMENT: GI symptoms / stool: No stool reported.Arsalan: 17. Skin Integrity: No issues reported. ANTHROPOMETRICS: Current Wt: 78.6 kgBMI: 31.0 kg/m2.Admit weight: 68.039 kg IBW: 50.0 kg (126.1% IBW) ESTIMATED NEEDS: Calories: 1576 - 1891 kcal (25 - 30 kcal / kg BW) Protein: 63 - 95 g protein (1.0 - 1.5 g / kg BW) Fluid: Approx. 2040 mL (30 mL / kg BW) NUTRITION DIAGNOSIS: 1)Inadequate oral intake related to altered GI function, as evidenced by NPO status x 3 D. INTERVENTION: 1) Will add supplements to trays. MONITOR/EVALUATE: Diet tolerance, PO intake, labs, GI/nutrition status. Follow up per moderate nutrition risk guidelines.
--- NOTE | 2017-04-25 14:24 | NUR ---
Social Work- Initial Assessment Data: See Initial Assessment. Pt is a 76 year old female admitted 04/22/17 for pancreatitis per H&P. Pt's insurance is [facility] and [place] [facility] [place]. Pt's PCP is Kg Spivey MD. SW met with pt at bedside regarding discharge plan, SW role explained. Pt is extremely hard of hearing and required SW to write explanation of assessment. Pt requested that CHILD CARE PROVIDER call her daughter Felicity [phone]. Felicity is the designated contact lens inspector for discharge planning needs as well as DPOA. DPOA is on file at the hospital. Pt resides in [place] with Felicity where she receives assistance with ADLs including housekeeping, meal prepping, dressing (occasionally), laundry, and medications. Pt uses a walker at baseline and ambulates only short distances. Pt has 24/7 oxygen through [employer], Felicity reports pt uses 2 L O2 at baseline. Pt does not drive. Pt has no LTC or VA benefits. Pt has no history of HH but received skilled rehab at [facility] after her knee replacement. Pt's daughter feels that HH would be beneficial after this hospitalization, SW to discuss with MD if HH is medically indicated at this time. SW to await HH orders. SW discussed with Felicity respite options and coordinating family to assist with overnight respite if needed in the future. Pt to discharge home with daughter Felicity to transport via POV, rule out HH prior to discharge. SW will continue to follow. Assessment: Pt who lives at home with her daughter. Plan: SW to follow for HH orders prior to discharge if medically indicated. Pt to discharge home with daughter Felicity to transport via POV, rule out HH prior to discharge. SW will continue to follow. SAMEER Steven Addendum: 04/25/17 at 1432 by COURTNEY TRAMMELL Amended: Links added.
--- NOTE | 2017-04-25 14:44 | NUR ---
Pain/Activity/Release of Medical Information Pt has been complaining of back pain during this shift. She is currently denying any abdominal pain. Pt's WAITER/WAITRESS ECONOMY CLASS discontinued and she has orders for PO 1mg Dilaudid q4hr. After administration of medication pt fell asleep and appears to be resting comfortably. Pt up to chair for meals this shift and to [facility] with 1 PA. Pt tolerated transfers well without signs or symptoms of dyspnea. Pt's daughter Felicity called this RN today and requested that a family friend Dr Allyn House be given medical information relating to the patient's current condition. Dr House is a chiropractic doctor and a close friend of the family. This RN discussed with the daughter that there are currently no updates to her mother's condition and that she is welcome to discuss her mother's condition with their friend. The daughter was offered to sign a release of medical information form so staff may discuss medical condition with this friend.
[2017-04-26] VITALS (10 sets, daily range): BP systolic 123–137; BP diastolic 58–98; PULSE 80–90; RESP 15–22; O2SAT 98–99
[2017-04-26] MEDS: Meropenem Inj 1,000 MG in 0.9% Sodium Chloride 50 ML IV SCH ×3 (00:29→17:02)
[2017-04-26 03:00] LABS: Mean Corpuscular Hemoglobin 28.8 pg (27.0-35.0)
--- NOTE | 2017-04-26 05:46 | NUR ---
Pain/Diarrhea Pt continue to c/o of back pain, Administered 1mg PO Dilaudid Q4 and effective. Pt able to rest between doses. Pt has had 3 loose BM's this shift. BM is light brown in color. VSS and Tele SR60's to 70's
[2017-04-26] MEDS: Pantoprazole 4 mg/mL 10 mL Inj IVPUSH SCH ×2 (08:22→17:02)
[2017-04-26] MEDS: Omega-3 Fatty Acids 1,000 mg Capsule PO SCH (08:30)
--- NOTE | 2017-04-26 15:40 | PCM.PNMED ---
Subjective Date of Service April 26, 2017 Rodrigo Razo is a 76-year-old lady with past medical history of hypertension, hypothyroidism, ischemic colitis, gastric bypass surgery, pericarditis, chronic hypercalcemia, presented to [facility] with epigastric pain, nausea and vomiting of 2 days treatment for pancreatitis. Hospital day # 5 No overnight events. Abdominal pain is now minimal and she is more symptomatic from her chronic back pain. Appetite is reduced, seems to be a chronic problem according to her daughter. No nausea or vomiting. No dyspnea. Exam Vital Signs Vital Sign - Last Date Time Temp Pulse Resp B/P Pulse Ox O2 Delivery O2 Flow Rate FiO2 04/26/17 11:33 37.0 83 16 133/98 99 Nasal Cannula 2.00 Intake and Output 04/25/17 04/25/17 04/26/17 Cumulative From/Thru 15:00 23:00 07:00 04/22/17 12:46 - 04/26/17 06:46 Intake Total 1319 ml 1684 ml 60036 ml Output Total 700 ml 650 ml 3750 ml Balance 619 ml 1034 ml 8347 ml Intake Oral 420 ml 637 ml 1837 ml IV Total 899 ml 1047 ml 28286 ml Output Urine Total 700 ml 350 ml 3450 ml Stool Total 300 ml 300 ml # Voids 2 # Bowel Movements 0 4 4 Exam General: Centrally obese elderly woman, somnolent, hard of hearing but in no acute distress HEENT: sclerae anicteric, oral mucosa moist Neck: no apparent JVD Chest: clear to auscultation Cardiac: S1S2, no murmur Abdomen: BS normal, non-tender to palpate Extremities: No significant edema Neuro: Intermittently very somnolent, cranial nerves symmetric, very hard of hearing, motor strength 4/5 truncal weakness IVs and Medications Medications Reviewed: Medications were reviewed in detail Lab and Diagnostics Result Diagram: 04/26/17 0245 04/25/17 0825 Microbiology MEET CULT URINE Final 04/26/17-54 Organism 1 K. PNEUMONIAE ESBL CYLINDER HONER U COLONY COUNT/QUANTITY >100,000 CFU/ml K. PNEUMONIAE ESBL CYLINDER HONER PLEASE NOTE This isolate has developed multiple resistance mechanisms to various classes of antibiotics. Consider Contact isolation precautions for in-patients. Contact Pharmacy. Consider Infectious Disease Specialist Consultation. CALLED TO RONAK Arguello INFECTION CONTROL 04/26 730 LANCE CALLED TO YIFAN Manzano 04/26 0735 LANCE 1. K. PNEUMONIAE ESBL CYLINDER HONER M.I.C Interp --------- ------ * AMOXICILLIN/CLAVULATE 16 I * AMPICILLIN >=32 R * CEFAZOLIN (CEPHALOSPORIN) UTI 64 R * CEFEPIME >=64 R * CEFTRIAXONE >=64 R * CEFUROXIME SODIUM >=64 R * CIPROFLOXACIN 2 I * ERTAPENEM <=0.5 S * GENTAMICIN >=16 R * IMIPENEM <=1 S * LEVOFLOXACIN 1 S * NITROFURANTOIN 64 I * TETRACYCLINE >=16 R * TOBRAMYCIN >=16 R * TRIMETHOPRIM/SULFAMETHOXAZOLE >=320 R . X-Rays, CTs and MRIs CT abdomen and pelvis on 04/22 at [facility] shows acute pancreatitis MR ABDOMEN MRCP IMPRESSION: 1. Findings of acute pancreatitis, without discrete peripancreatic fluid collections. 2. No intra-or extrahepatic biliary ductal dilation or stones, status post cholecystectomy. Pancreatic ducts are nondilated and not well-seen, and the 3. Nondistended main pancreatic duct is not well-visualized, and therefore any congenital variants such as pancreas divisum cannot be excluded. 4. 3.9 cm inferior left renal cortical simple cyst. Dictated by: Randy Sahu M.D. on 04/22/2017 at 19:43 PROCEDURE: CT ABDOMEN WITH CONTRAST ([id number]) IMPRESSION: 1. Resolving peripancreatic fluid. No abscess. Dictated by: Dawit Fortune M.D. on 04/25/2017 at 12:51 . Assessment & Plan Harmeet Razo is a 76-year-old lady with past medical history of hypertension, hypothyroidism, ischemic colitis, gastric bypass surgery, pericarditis, chronic hypercalcemia, alpha-1 antitrypsin gene carrier, presented to [facility] with epigastric pain, nausea and vomiting of 2 days. Currently under treatment for pancreatitis. Hospital day #4 # Acute pancreatitis, present on admission, active. Unknown etiology. Possibly related to her chronic hypercalcemia. LFTs normal, MRCP no biliary obstruction. Initial lipase 3032, CT consistent with acute pancreatitis. Clinical course generally improving but with secondary infection of urine and rising WBC count. Abdominal CT scan was repeated on day #3, with no evidence of abscess or pancreatic cyst. Leukocytosis persists but no other signs of active inflammation. I believe she is in the recuperative phase of acute pancreatitis and able to take parenteral fluids and nutrition fully. - discontinue IV fluids, encourage by mouth fluid intake - continue Dilaudid by mouth if needed for abdominal pain, but reduce opioid use for chronic back pain - Encourage enteral nutrition - Zofran and Reglan as needed # Secondary infection, not present on admission. Significant pyuria with ESBL along sensitive Klebsiella. - On meropenem; can switch to quinolone when ready for discharge # Hypokalemia and low magnesium, present on admission, repleted. Initial K 2.9 and magnesium 1.6. Now resolved -Monitor BMP periodically # PERFECTO, chronic. Patient shows significant daytime sleepiness. His prior diagnosis of PERFECTO but refuses CPAP due to claustrophobia. I suspect she is experiencing opioid induced respiratory depression - I counseled patient and family on need to minimize opioid use due to risk of respiratory failure # Deconditioning, acute on chronic. Patient's baseline level of mobility is largely one-two room ambulation with walker. Currently she is unable to get out of bed without significant assistance. She has peripheral muscle wasting. She seems unable or unwilling to assist in her own mobilization. I suspect that her current bout of acute pancreatitis may render her permanently nursing- home bound. This would be compounded by opioid related respiratory depression and untreated PERFECTO. Discussion of goals of care today is documented separately - Palliative care consult - Continue aggressive physical therapy efforts - Recommend SNF discharge # Hypercalcemia. Corrected calcium 11 on admission. Etiology unclear. -SPEP, PTH RP pending -PTH normal -Vitamin D level 16, started vitamin D Chronic problems present on admission: Hypertension -Held home medications. Resume today Hypothyroidism -Continue Synthroid History of pericardial effusion ,not evident on current ECHO -Hold diuretics for now. Prophylaxis -Lovenox and Protonix DNR/DNI , verified from patient. She names her daughter Felicity as POA tel [phone] Disposition discharge to SNF in 1-2 days VTE Prophylaxis: Sub-Q Enoxaparin VTE Mechanical Devices: Intermittant Pneumatic CD Resuscitation Status: DNR/DNI:Do Not Resuscitate/Intubate Time spent 35 minutes Tong Rainey MD April 26, 2017 15:40
--- NOTE | 2017-04-26 16:13 | NUR ---
Lethargy/Activity Pt. was very lethargic this morning, opening her eyes and responding to questions, but then quickly falling asleep. When her lunch tray came and she was more alert, I helped her get to the edge of the bed, and she was able to stand up and sit in the chair for lunch. She sat in the chair for 2 hours, then transferred back to bed with minimal assistance. Will continue to try and get her moving today, to keep up her strength.
--- NOTE | 2017-04-26 17:11 | PCM.ADCARE ---
Advance Care Planning Note Purpose of Encounter: Goals of care Parties in Attendance: Daughter Felicity, patient, Dr. Rainey Decisional Capacity: The patient has limited decisional capacity due to metabolic encephalopathy, opioid sedation, chronic respiratory failure. Her daughter Felicity is her DPOA, who participated actively in prior CODE STATUS discussion. Subjective: The patient suffers from chronic musculoskeletal pain. She has previously expressed the wish that she does not want to continue to live with pain. She is currently experiencing excessive somnolence and chronic respiratory failure which appears to be due to untreated PERFECTO. The patient has refused to wear CPAP in the past. Her daughter is aware that her mother's health and quality of life for declining. In her current state of limited ambulation, chronic pain, intermittent somnolence her daughter feels that the patient's quality of life is below what she would have wished for herself. She does not however feel that full withdrawal of care is appropriate at this time. Objective: Current problem list: Acute pancreatitis is resolving Chronic musculoskeletal opioid dependent back pain is persistent Encephalopathy, sleep disturbance and somnolence related to untreated PERFECTO, opioid pain medications Goals of Care Determinations: Attempted to communicate with patient regarding options to de-escalate her care. She is not able to spit effectively in this conversation. She is limited both by toxic encephalopathy, metabolic encephalopathy and difficulty hearing. I explained the role of palliative care to de-escalate medical interventions for over pupils were approaching end-of-life due to accumulated medical comorbidities. Her daughter feels this would be appropriate and wishes for her mother to maintain a pain-free existence even if this does not maximize life prolongation. Plan: #1 no change to her current DO NOT INTUBATE and DO NOT RESUSCITATE status #2 continue to treat opioid dependent pain with lowest effective dose of opioids to avoid precipitating respiratory arrest #3 palliative care consult to consider further pain management option perhaps comfort care pathways at SNF. CODE STATUS: DNR/DNI Time Spent Adv.Care Plannin minutes Adv. Care Plan Documenation: DNR/DNI order. Palliative care consult requested. Tong Rainey MD April 26, 2017 17:11
[2017-04-27] VITALS (11 sets, daily range): BP systolic 108–138; BP diastolic 32–74; PULSE 65–85; RESP 17–21; O2SAT 97–100
[2017-04-27] MEDS: Meropenem Inj 1,000 MG in 0.9% Sodium Chloride 50 ML IV SCH ×3 (00:52→17:59)
[2017-04-27 03:46] LABS: Mean Corpuscular Hemoglobin 28.2 pg (27.0-35.0); Mean Corpuscular Volume 89.9 fL (81-100)
--- NOTE | 2017-04-27 05:15 | NUR ---
Pain: P: Continued complaints of back pain. I: Pt initially medicated with 1 mg of PO Dilaudid. Pt later repositioned up into chair during then night and then later re-medicated with 1 mg of PO Dilaudid. E: Pt fell asleep after each intervention and then later awoke with pain. Pt currently sleeping. Will cont. to monitor.
[2017-04-27] MEDS: Ondansetron 2 mg/mL 2 mL Inj IVPUSH PRN (07:45)
[2017-04-27] MEDS: Omega-3 Fatty Acids 1,000 mg Capsule PO SCH (07:45)
[2017-04-27] MEDS: Pantoprazole 4 mg/mL 10 mL Inj IVPUSH SCH ×2 (08:16→17:58)
--- NOTE | 2017-04-27 10:41 | NUR ---
PANCHO: Patient is not alert and oriented, this morning was unarousable even with touch. Asked BUILDING INSPECTOR to follow up on this PANCHO with family. Asked her to please do today since it has not been done in 5 days!
--- NOTE | 2017-04-27 13:19 | PCM.PNMED ---
Subjective Date of Service April 27, 2017 Subjective She is having a lot of flank pain. A lot of back pain as well. No nausea, vomiting. No chest pain, shortness of breath. No overnight events. Exam Vital Signs Vital Sign - Last Date Time Temp Pulse Resp B/P Pulse Ox O2 Delivery O2 Flow Rate FiO2 04/27/17 12:38 36.5 75 21 116/43 98 Nasal Cannula 2.00 Intake and Output 04/26/17 04/26/17 04/27/17 Cumulative From/Thru 15:00 23:00 07:00 04/22/17 12:46 - 04/27/17 06:16 Intake Total 510 ml 465 ml 01272 ml Output Total 400 ml 4150 ml Balance 510 ml 65 ml 8922 ml Intake Oral 320 ml 400 ml 2557 ml IV Total 190 ml 65 ml 02581 ml Output Urine Total 300 ml 3750 ml Stool Total 300 ml Urine/Stool Mix 100 ml 100 ml # Voids 3 3 8 # Bowel Movements 1 2 7 Exam Alert and oriented -3, no distress. Fluent speech Anicteric sclera. Lungs are clear with normal rate and effort Heart is regular without murmur gallop or rub Abdomen soft nontender, flat Extremities are free of edema. Skin is free of rash or lesions. IVs and Medications Medications Reviewed: Medications were reviewed in detail Lab and Diagnostics Result Diagram: 04/27/17 0320 04/25/17 0825 Microbiology MEET CULT URINE Final 04/26/17-35 Organism 1 K. PNEUMONIAE ESBL POLYMER MATERIALS CONSULTANT U COLONY COUNT/QUANTITY >100,000 CFU/ml K. PNEUMONIAE ESBL POLYMER MATERIALS CONSULTANT PLEASE NOTE This isolate has developed multiple resistance mechanisms to various classes of antibiotics. Consider Contact isolation precautions for in-patients. Contact Pharmacy. Consider Infectious Disease Specialist Consultation. CALLED TO RONAK Arguello INFECTION CONTROL 04/26 730 LANCE CALLED TO YIFAN Manzano 04/26 735 LANCE 1. K. PNEUMONIAE ESBL POLYMER MATERIALS CONSULTANT M.I.C Interp --------- ------ * AMOXICILLIN/CLAVULATE 16 I * AMPICILLIN >=32 R * CEFAZOLIN (CEPHALOSPORIN) UTI 64 R * CEFEPIME >=64 R * CEFTRIAXONE >=64 R * CEFUROXIME SODIUM >=64 R * CIPROFLOXACIN 2 I * ERTAPENEM <=0.5 S * GENTAMICIN >=16 R * IMIPENEM <=1 S * LEVOFLOXACIN 1 S * NITROFURANTOIN 64 I * TETRACYCLINE >=16 R * TOBRAMYCIN >=16 R * TRIMETHOPRIM/SULFAMETHOXAZOLE >=320 R . X-Rays, CTs and MRIs CT abdomen and pelvis on 04/22 at [facility] shows acute pancreatitis MR ABDOMEN MRCP IMPRESSION: 1. Findings of acute pancreatitis, without discrete peripancreatic fluid collections. 2. No intra-or extrahepatic biliary ductal dilation or stones, status post cholecystectomy. Pancreatic ducts are nondilated and not well-seen, and the 3. Nondistended main pancreatic duct is not well-visualized, and therefore any congenital variants such as pancreas divisum cannot be excluded. 4. 3.9 cm inferior left renal cortical simple cyst. Dictated by: Randy Sahu M.D. on 04/22/2017 at 19:43 PROCEDURE: CT ABDOMEN WITH CONTRAST ([id number]) IMPRESSION: 1. Resolving peripancreatic fluid. No abscess. Dictated by: Dawit Fortune M.D. on 04/25/2017 at 12:51 . Assessment & Plan Harmeet Razo is a 76-year-old lady with past medical history of hypertension, hypothyroidism, ischemic colitis, gastric bypass surgery, pericarditis, chronic hypercalcemia, alpha-1 antitrypsin gene carrier, presented to [facility] with epigastric pain, nausea and vomiting of 2 days. Currently under treatment for pancreatitis. Hospital day #4 # Acute pancreatitis, present on admission, active. Unknown etiology. Improving. Possibly related to her chronic hypercalcemia. LFTs normal, MRCP no biliary obstruction. Initial lipase 3032, CT consistent with acute pancreatitis. Clinical course generally improving but with secondary infection of urine and rising WBC count. Abdominal CT scan was repeated on day #3, with no evidence of abscess or pancreatic cyst. Leukocytosis persists but no other signs of active inflammation. I believe she is in the recuperative phase of acute pancreatitis and able to take parenteral fluids and nutrition fully. - discontinue IV fluids, encourage by mouth fluid intake - continue Dilaudid by mouth if needed for abdominal pain, but reduce opioid use for chronic back pain - Encourage enteral nutrition - Zofran and Reglan as needed #Pyelonephritis. Significant pyuria with ESBL along sensitive Klebsiella. - On meropenem; can switch to quinolone when ready for discharge # Hypokalemia and low magnesium, present on admission, repleted. Improved. Initial K 2.9 and magnesium 1.6. Now resolved -Monitor BMP periodically # PERFECTO, chronic and stable. Patient shows significant daytime sleepiness. His prior diagnosis of PERFECTO but refuses CPAP due to claustrophobia. I suspect she is experiencing opioid induced respiratory depression - I counseled patient and family on need to minimize opioid use due to risk of respiratory failure # Deconditioning, acute on chronic. Patient's baseline level of mobility is largely one-two room ambulation with walker. Currently she is unable to get out of bed without significant assistance. She has peripheral muscle wasting. She seems unable or unwilling to assist in her own mobilization. I suspect that her current bout of acute pancreatitis may render her permanently nursing- home bound. This would be compounded by opioid related respiratory depression and untreated PERFECTO. Discussion of goals of care today is documented separately - Palliative care consult - Continue aggressive physical therapy efforts - Recommend SNF discharge # Hypercalcemia, POA. Improved.. Corrected calcium 11 on admission. Etiology unclear. -SPEP, PTH RP pending -PTH normal -Vitamin D level 16, started vitamin D Hypertension, POA. Stable. -Held home medications. Resume today Hypothyroidism, POA. Stable. -Continue Synthroid History of pericardial effusion ,not evident on current ECHO. Resolved. -Hold diuretics for now. Prophylaxis -Lovenox and Protonix DNR/DNI , verified from patient. She names her daughter Felicity as POA tel [phone] Disposition discharge to SNF in 1-2 days VTE Prophylaxis: Sub-Q Enoxaparin VTE Mechanical Devices: Intermittant Pneumatic CD Resuscitation Status: DNR/DNI:Do Not Resuscitate/Intubate Hay House MD April 27, 2017 13:19 Hay House MD April 27, 2017 13:19
[2017-04-27] MEDS: oxyCODONE 1 mg/mL 5 mL Liquid PO PRN ×3 (13:25→23:08)
--- NOTE | 2017-04-27 14:49 | NUR ---
Evaluation completed. Please go to "Notes" then click on "Assessments and Notes" (bottom left corner of screen). Then select appropriate discipline tab on top of screen.
--- NOTE | 2017-04-27 18:36 | NUR ---
Pain Pt continues to complain of 10/10 pain in her back. MD made aware and ordered liquid Roxycodone 5mg for pain. Pt administered medication and within 30 minutes is asleep and appears to be resting comfortably with FELDT of 0.
[2017-04-28] VITALS (10 sets, daily range): BP systolic 78–119; BP diastolic 40–51; PULSE 78–89; RESP 12–21; O2SAT 94–98
[2017-04-28] MEDS: Meropenem Inj 1,000 MG in 0.9% Sodium Chloride 50 ML IV SCH ×3 (00:57→18:05)
[2017-04-28] MEDS: Pantoprazole 4 mg/mL 10 mL Inj IVPUSH SCH ×2 (09:14→18:05)
[2017-04-28] MEDS: Omega-3 Fatty Acids 1,000 mg Capsule PO SCH (09:27)
--- NOTE | 2017-04-28 11:46 | NUR ---
Palliative Care Palliative Care received order from Dr Rainey 04/26/17 to assist with goals of care. Patient was admitted 04/22/17. She lives with her daughter, Sonal. Sonal (daughter) [phone] Ana Rousseau (daughter) [phone] Allyn Urbano (granddaughter) [phone] Palliative Care to follow. Valeri Garcia
--- NOTE | 2017-04-28 13:57 | NUR ---
[facility] per STEMMING MACHINE OPERATOR
--- NOTE | 2017-04-28 14:23 | PCM.CONPAL ---
Date of Service April 28, 2017 Date of Hospital Admission: April 22, 2017 at 11:05 Date of Palliative Consult: April 28, 2017 Requesting Provider: Tong Rainey MD Reason Palliative Care Consult: Advance Care Planning, Goals of Care Discussion Hospital Unit @time of consult: Progressive Care Palliative Care Recommendation 76-year-old female with complex medical history, admitted with intractable epigastric pain found to be related to acute pancreatitis (of unclear causation ) with subsequent finding of ESBL Klebsiella UTI. Also has significant history of PERFECTO but unwilling to use CPAP. Pain initially controlled with Dilaudid [employer], eventually transitioned to oral Dilaudid with significant dosage reduction from her usual baseline use because of concerns of lethargy and respiratory depression. As a consequence, has had intractable low back pain (chronic, associated with severe degenerative lumbosacral disease) with consequent anorexia, nausea, etc. which is limiting her recovery. Palliative medicine consulted to assist with symptom management and determination of goals of care. Summary of palliative recommendations: -Symptom management (Pain/other)- I attempted to contact her PCP, Dr. Spivey, to review her medications but he is out of the office today. I will plan on speaking with him tomorrow. Reviewed her pain medications with Dr. House, her hospitalist, and at this time I am going to start her on scheduled oral Dilaudid 2 mg every 8 hours, with oral oxycodone 5-10 mg oral every 3 hours as needed for breakthrough pain. The patient was very thankful that we would be making medication changes to try to help with her pain, as was her daughter Felicity. Felicity also noted that pain relief/comfort is the primary goal and was very willing to accept the risk of increasing lethargy, respiratory depression, etc. if patient could be more comfortable. Will continue to follow and assess and adjust medications in the coming days as needed. Continue medications for nausea as currently ordered by hospitalist. Reviewed med changes and other orders/plans in detail with her bedside nurse. -DPOA/Advanced Directives/POLST- confirmed the DO NOT RESUSCITATE/DO NOT INTUBATE status today. Depending on progress in the coming days, anticipate further conversations about goals of care will continue to evolve, and may progress to comfort pathway. Will plan on generating a new POLST prior to discharge. Today we discussed artificial nutrition support, and after discussion of various options, goals, patient wishes, etc. decision was made to encourage oral intake, have nurses provide assist with feeding, etc. but not to undertake any artificial nutrition support otherwise. -Family/emotional support- aga Blevins has now moved to [place] and plans on remaining in the area to provide all support needed by her mother. Patient has a son, Kuldip, who lives in [place] but apparently has not been involved in her care. Patient Goals: 1. Patient and her daughter wants to be told the truth about her illness, even if it is unpleasant. 2. Patient and her daughter would like to be told prognosis when it can be predicted, to better guide treatment decisions. 3. Patient and her daughter would choose quality of life over quantity of life, and defines quality as relief of discomfort 4. Patient and her daughter would request that comfort care take priority over cognitive/mental confusion. Additional Medical Diagnoses with primary management by Hospitalist team include : # Acute pancreatitis, present on admission, active. Unknown etiology. Improving. Possibly related to her chronic hypercalcemia. LFTs normal, MRCP no biliary obstruction. Initial lipase 3032, CT consistent with acute pancreatitis. Clinical course generally improving but with secondary infection of urine and rising WBC count. Abdominal CT scan was repeated on day #3, with no evidence of abscess or pancreatic cyst. Leukocytosis persists but no other signs of active inflammation. #Pyelonephritis. Significant pyuria with ESBL along sensitive Klebsiella. # Hypokalemia and low magnesium, present on admission, repleted. Improved. Initial K 2.9 and magnesium 1.6. Now resolved # PERFECTO, chronic and stable. Patient shows significant daytime sleepiness. His prior diagnosis of PERFECTO but refuses CPAP due to claustrophobia. I suspect she is experiencing opioid induced respiratory depression # Deconditioning, acute on chronic. Patient's baseline level of mobility is largely one-two room ambulation with walker. Currently she is unable to get out of bed without significant assistance. She has peripheral muscle wasting. She seems unable or unwilling to assist in her own mobilization. I suspect that her current bout of acute pancreatitis may render her permanently nursing- home bound. This would be compounded by opioid related respiratory depression and untreated PERFECTO. # Hypercalcemia, POA. Improved.. Corrected calcium 11 on admission. Etiology unclear. Hypertension, POA. Stable. Hypothyroidism, POA. Stable. History of pericardial effusion ,not evident on current ECHO. Resolved. Problems: End of Life Preferences DO NOT RESUSCITATE/DO NOT INTUBATE Goals of Care Comfort and pain relief remain the primary goals Disposition To be determined Resuscitation Status Resuscitation Status: DNR/DNI:Do Not Resuscitate/Intubate POLST Updates/Changes Previous POLST?: No . Pain: Moderate Symptom management: Nausea, Pain Pt History History of Present Illness Per admission H&P: 76-year-old lady with past medical history of hypertension, hypothyroidism, history of ischemic colitis, history of gastric bypass surgery, history of pericarditis, chronic hypercalcemia, alpha-1 antitrypsin gene carrier, presented to [facility] with epigastric pain, nausea and vomiting of 2 days. Patient states she developed progressively worsening epigastric pain. Pain is continuous,10/10, nonradiating. She also has nausea and episodes of vomiting. Denies fever. Denies diarrhea. Denies other complaints. Denies alcohol drinking. Has history of cholecystectomy in 70s. UG ED course: Unremarkable vital signs wbc 12.7, hemoglobin 12.9, sodium 137, potassium 2.9, chloride 100, bicarbonate 33, BUN12, creatinine 0.84, protein 7.2, albumin 2.8, globulin 4.4, calcium 9.5 , corrected calcium 10.5 Tbili 0.8, alkaline phosphatase 101, ALT 25, AST 43,lipase 3032, troponin negative, CPK 21, magnesium 1.6 CT abdomen pelvis reportedly showed acute pancreatitis, no mention of dilated biliary system IV fluid given , Dilaudid for pain given. Potassium and magnesium repeleted. Transfer to [facility] due to bed unavailability Since admission, pancreatitis has improved. Patient was, however, found to have UTI with ESBL Klebsiella and continues on antibiotic therapy. She complains frequently of severe back pain- this is the primary manifestation of her chronic pain but there have also been concerns that it may be related to her pyelonephritis, pancreatitis or other. There has been concern of PERFECTO and risk of respiratory suppression by her narcotics which led to her usual narcotic regimen being decreased. Palliative medicine was consulted to assist with symptom management and discussion of goals of care with the patient and her family. Prior to visiting today, I reviewed her records in the EMR in detail, spoke with her hospitalist and her bedside nurse and with her hospitalist. Returned later and spoke at length with her daughter/caregiver Felicity. 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 Her pain medications were decreased at admission, and with her prolonged bed rest and other medical problems, she has had significant flare of her back symptoms. Patient told me that she becomes nauseated when the pain becomes too great. Because of the discomfort in the nausea her oral intake has significantly declined. Felicity was anxious about this and inquired about various means of nutritional support. Also was concerned about limited activity/lack of PT and we discussed this. We talked about possible eventual disposition to SNF. Felicity remains committed to providing whatever care the patient needs, but understands that she may require SNF placement. She noted that patient has been deteriorating and expressing the wish that she did not want to return to the hospital and that she be allowed to pass away peacefully, but when her abdominal pain became too severe at home, she was willing to be admitted. We reviewed her various medical diagnoses and talked about current and future possible treatments. Felicity expressed the desire to be told the truth/no "sugarcoating" about patient's status and prognosis. Felicity noted patient usually takes Dilaudid, 4 mg BID. Doses occasionally given early, but denies extra doses. Has used other meds for breakthrough, but unclear what exactly. May have had facial swelling in past with oxycodone, but no abnormal effects here, so will continue it for breakthrough (which Felicity was pleased to hear). Past Medical History Significant PMH Noted: Alpha-1 antitrypsin gene carrier. Patient learned about it when her son was diagnosed with lung failure due to alpha-1 antitrypsin deficiency. Her is also carier . Son underwent double lung transplant 10 years ago at age 35 but transplant failing currently hypertension, hypothyroidism, history of ischemic colitis, history of gastric bypass surgery, history of pericarditis, chronic hypercalcemia, History of stroke at age 23 History of arthritis status post joint replacement Remote history of asthma Vitamin D deficiency Recurrent perioral herpetic lesions Surgical History Remote history of gastric bypass surgery for obesity in Hernia repair Appendectomy Cholecystectomy Right knee replacements Hysterectomy Carpal tunnel surgery bilateral Tonsillectomy Temporal artery biopsy right side 2015 Right-sided Cardiac catheterization february 2017 Social History Occupation: Retired Family Members Issues: Patient's daughter Felicity [place] to care for patient. She will stay at the patient's home with her (she says that the house will become hers when the patient passes in any event). She noted the patient's son, Kuldip, has been uncommunicative and uninvolved, despite living nearby. All care is therefore provided by Felicity, and she was interested in home health or other support if patient eventually discharges home. Her primary goal is patient comfort/pain control She noted that the patient has been expressing the wish to be allowed to pass away Living Situation: Has been living in her own home with daughter Felicity's support Felicity recognizes SNF placement may be necessary Palliative Performance Scale PPS Patient Status: Baseline PPS Ambulation: Reduced PPS Activity: Unable to do any activity PPS Self-Care: Occasional assistance necessary PPS Intake: Normal or reduced PPS Conscious Level: Full or confusion Performance Scale: 50% ADLs ADL Patient Status: Baseline ADL Ambulation: Reduced ADL Dressing: Occasional assistance necessary ADL Feeding: Occasional assistance necessary ADL Hygene/bathing: Occasional assistance necessary ADL Transfers: Occasional assistance necessary POLST at Time of Admission Previous POLST?: No Allergy Allergies Reviewed: Yes Medications Current Medications: Current Medications Oxycodone HCl 5 mg Q4H PRN PO Last administered on 04/27/17t 23:08; Admin Dose 5 MG; Start 04/27/17 at 12:50; Stop 04/28/17 at 10:39; Status DC Hydromorphone HCl 2 mg Q8H PO; Start 04/28/17 at 16:30 Oxycodone HCl 5j-10 mg PO Q3 hr for breakthro... Q3H PRN PO; Start 04/28/17 at 11:30 Scheduled Aspirin (Aspirin) 81 Mg Tablet 81 MG PO DAILY Carvedilol (Carvedilol) 3.125 Mg Tablet 1 TABLET PO BID Fluoxetine (Fluoxetine) 40 Mg Capsule 40 MG PO DAILY Levothyroxine (Levothyroxine) 75 Mcg Tablet 75 MCG PO DAILY Vernon-3 Fatty Acids/Fish Oil (Vernon 3 1,000 mg Softgel) 1 Each Capsule 1 EACH PO DAILY Omeprazole (Omeprazole) 20 Mg Tablet.dr 20 MG PO DAILY Potassium Chloride (Potassium Chloride) 20 Meq Tab.er.prt 1 TABLET PO DAILY Psyllium Seed (with Sugar) (Metamucil Packet) 1 Each Packet 1 EACH PO DAILY Torsemide (Torsemide) 20 Mg Tablet 60 MG PO DAILY Scheduled PRN Acyclovir (Acyclovir) 800 Mg Tab 1 TABLET PO BID PRN PRN outbreak Hydromorphone (Hydromorphone) 4 Mg Tablet 4 MG PO Q6H PRN PRN Pain Ondansetron (Ondansetron) 4 Mg Tablet 1 TABLET PO Q8H PRN PRN For Nausea/ Vomiting Miscellaneous Medications Latanoprost (Latanoprost) 2.5 Ml Drops 1 GTT BOTH_EYES Methotrexate Sodium (Methotrexate) 2.5 Mg Tablet Objective Findings Exam Vital Sign - Last Date Time Temp Pulse Resp B/P Pulse Ox O2 Delivery O2 Flow Rate FiO2 04/28/17 09:26 80 04/28/17 08:39 36.5 16 119/45 98 Nasal Cannula 2.00 Intake and Output 04/27/17 04/27/17 04/28/17 Cumulative From/Thru 15:00 23:00 07:00 04/22/17 12:46 - 04/28/17 06:10 Intake Total 1415 ml 500 ml 40870 ml Output Total 450 ml 700 ml 5300 ml Balance 965 ml -200 ml 9687 ml Intake Oral 1350 ml 400 ml 4307 ml IV Total 65 ml 100 ml 27431 ml Output Urine Total 450 ml 700 ml 4900 ml Stool Total 300 ml Urine/Stool Mix 100 ml # Voids 2 10 # Bowel Movements 1 1 9 Objective Appears almost obtunded, but is nearly totally deaf. With yelling in her left ear, she responds appropriately and answers all questions reasonably. c/o low back pain, but no abd pain, SOB, nausea. Says this is typical of her LBP. HEENT/neck without acute changes. Lungs are clear anterolaterally. Heart is regular without obvious abnormality. Abdomen soft nontender,no peritoneal signs No tenderness of C-spine or T-spine; mild palpation tenderness of L-spine on midline. No severe point tenderness. Extremities are free of edema. Skin is free of rash or lesions. Lab/Diagnostics Lab and Imaging results reviewed in detail in EMR. Time spent Total time 80 minutes; >50% face to face with patient and family, providing counselling regarding plans and recommendations, and in care coordination with her medical teams. Of the above total time, 20 minutes counseling for advanced care planning with the patient and her daughter, reviewing and discussing advanced care issues/ wishes. copies to: Kg Spivey MD, David F MD April 28, 2017 12:36
--- NOTE | 2017-04-28 14:27 | PCM.PNMED ---
Subjective Date of Service April 28, 2017 Subjective She feels a little bit better today. More awake. She has a lot of back pain which is her chronic back pain. She denies fevers or chills. No confusion. She has a longer hearing aid which is making hearing a lot easier for her today. Her appetite is still poor but slowly improving. No overnight events Exam Vital Signs Vital Sign - Last Date Time Temp Pulse Resp B/P Pulse Ox O2 Delivery O2 Flow Rate FiO2 04/28/17 12:48 36.7 78 21 108/51 98 04/28/17 08:39 Nasal Cannula 2.00 Intake and Output 04/27/17 04/27/17 04/28/17 Cumulative From/Thru 15:00 23:00 07:00 04/22/17 12:46 - 04/28/17 06:10 Intake Total 1415 ml 500 ml 07878 ml Output Total 450 ml 700 ml 5300 ml Balance 965 ml -200 ml 9687 ml Intake Oral 1350 ml 400 ml 4307 ml IV Total 65 ml 100 ml 40381 ml Output Urine Total 450 ml 700 ml 4900 ml Stool Total 300 ml Urine/Stool Mix 100 ml # Voids 2 10 # Bowel Movements 1 1 9 Exam Alert and oriented -3, no distress. Fluent speech Anicteric sclera. Lungs are clear with normal rate and effort Heart is regular without murmur gallop or rub Abdomen soft nontender, flat Extremities are free of edema. Skin is free of rash or lesions. IVs and Medications Medications Reviewed: Medications were reviewed in detail Lab and Diagnostics Result Diagram: 04/27/17 0320 04/25/17 0825 Microbiology MEET CULT URINE Final 04/26/17-734 Organism 1 K. 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 PNEUMONIAE [employer] DRIVER PLEASE NOTE This isolate has developed multiple resistance mechanisms to various classes of antibiotics. Consider Contact isolation precautions for in-patients. Contact Pharmacy. Consider Infectious Disease Specialist Consultation. CALLED TO RONAK Arguello INFECTION CONTROL 04/26 730 LANCE CALLED TO YIFAN Manzano 04/26 735 LANCE 1. K. PNEUMONIAE [employer] DRIVER M.I.C Interp --------- ------ * AMOXICILLIN/CLAVULATE 16 I * AMPICILLIN >=32 R * CEFAZOLIN (CEPHALOSPORIN) UTI 64 R * CEFEPIME >=64 R * CEFTRIAXONE >=64 R * CEFUROXIME SODIUM >=64 R * CIPROFLOXACIN 2 I * ERTAPENEM <=0.5 S * GENTAMICIN >=16 R * IMIPENEM <=1 S * LEVOFLOXACIN 1 S * NITROFURANTOIN 64 I * TETRACYCLINE >=16 R * TOBRAMYCIN >=16 R * TRIMETHOPRIM/SULFAMETHOXAZOLE >=320 R . X-Rays, CTs and MRIs CT abdomen and pelvis on 04/22 at [facility] shows acute pancreatitis MR ABDOMEN MRCP IMPRESSION: 1. Findings of acute pancreatitis, without discrete peripancreatic fluid collections. 2. No intra-or extrahepatic biliary ductal dilation or stones, status post cholecystectomy. Pancreatic ducts are nondilated and not well-seen, and the 3. Nondistended main pancreatic duct is not well-visualized, and therefore any congenital variants such as pancreas divisum cannot be excluded. 4. 3.9 cm inferior left renal cortical simple cyst. Dictated by: Randy Sahu M.D. on 04/22/2017 at 19:43 PROCEDURE: CT ABDOMEN WITH CONTRAST ([id number]) IMPRESSION: 1. Resolving peripancreatic fluid. No abscess. Dictated by: Dawit Fortune M.D. on 04/25/2017 at 12:51 . Assessment & Plan Harmeet Razo is a 76-year-old lady with past medical history of hypertension, hypothyroidism, ischemic colitis, gastric bypass surgery, pericarditis, chronic hypercalcemia, alpha-1 antitrypsin gene carrier, presented to [facility] with epigastric pain, nausea and vomiting of 2 days. Currently under treatment for pancreatitis. Hospital day #4 # Acute pancreatitis, present on admission, active. Unknown etiology. Improving. Slow advance of diet. Clinically this is going well. #Pyelonephritis. Significant pyuria with ESBL Klebsiella. - On meropenem; will continue for now. # Hypokalemia and low magnesium, present on admission, resolved. # PERFECTO, chronic and stable. Patient shows significant daytime sleepiness. His prior diagnosis of PERFECTO but refuses CPAP due to claustrophobia. I suspect she is experiencing opioid induced respiratory depression - I counseled patient and family on need to minimize opioid use due to risk of respiratory failure # Deconditioning, acute on chronic. Patient's baseline level of mobility is largely one-two room ambulation with walker. Currently she is unable to get out of bed without significant assistance. She has peripheral muscle wasting. She seems unable or unwilling to assist in her own mobilization. I suspect that her current bout of acute pancreatitis may render her permanently nursing- home bound. This would be compounded by opioid related respiratory depression and untreated PERFECTO. Discussion of goals of care today is documented separately - Palliative care consult - Continue aggressive physical therapy efforts - Recommend SNF discharge # Hypercalcemia, POA. Improved.. Corrected calcium 11 on admission. Etiology unclear. -SPEP, PTH RP pending -PTH normal -Vitamin D level 16, started vitamin D, will follow with occasional blood tests. Hypertension, POA. Stable. -Held home medications. Resume today Hypothyroidism, POA. Stable. -Continue Synthroid History of pericardial effusion ,not evident on current ECHO. Resolved. -Hold diuretics for now. Prophylaxis -Lovenox and Protonix DNR/DNI , verified from patient. She names her daughter Felicity as POA tel [phone] Disposition discharge to SNF possibly on Thursday or . VTE Prophylaxis: Sub-Q Enoxaparin VTE Mechanical Devices: Intermittant Pneumatic CD Resuscitation Status: DNR/DNI:Do Not Resuscitate/Intubate Hay House MD April 28, 2017 14:27
[2017-04-28 14:41] LABS: Mean Corpuscular Hemoglobin 28.4 pg (27.0-35.0); Mean Corpuscular Volume 90.2 fL (81-100)
[2017-04-28] MEDS: 0.9% Sodium Chloride 1,000 ML IV SCH (14:53)
[2017-04-28] MEDS: oxyCODONE 1 mg/mL 5 mL Liquid PO PRN ×2 (14:54→21:36)
--- NOTE | 2017-04-28 15:39 | NUR ---
Palliative care note [facility] D/A: Met with pt dtr Felicity Razo (cell at [phone]). She notes that she has moved back to the area from [facility] to be her mothers fulltime day care worker. She indicates that she has a brother locally named Kuldip but he sounds to be uninvolved with pt or rest of the family. Note that pt has received medical care at [facility], [facility] and here at [facility]. Pt has a recoverer in [place], last name of Levi. Per dtr description, it sounds as thought pt has suffered through several bouts of what sounds to be pancreatitis like symptoms in the last several months. Pt suffers from significant low back pain and has been taking Dilaudid for this. Dr. Najera questions dtr closely about her medication regime and explains how he hopes to improve pt current qualify of life by medicating her to best control her pain. Dtr quite worried that pt is not eating. Discuss TPN as well as tube feeding at length. It is hoped that as pt is better medicated that her appetite may return to pre hospitalization levels. Pt does not have a history of home health but does have a history of SNF placement. Actual facility unknown but dtr recalls that it was in [facility]. SNF placement is discussed with dtr who is in agreement with this plan, if recommended by medical team. Her only caveat being that she is all for it, if insurance will pay for it. P: Palliative care to follow and assist pt with pain management and possible further needs regarding goals of care. Linda RIZO, CCM
--- NOTE | 2017-04-28 16:09 | NUR ---
PANCHO Signed SAMEER Hawley
--- NOTE | 2017-04-28 16:10 | NUR ---
Social Work Note: Continue Discharge Planning Data& Assessment: SW received order from MD to arranged SNF placement for pt per PT recommendations. SW provided SNF list to pt and pt daughter at bedside. Pt has been to [facility] in the past and had a very good experience there. [facility] is the preference. Referral provided to [facility]. Per Jodie from [facility] they are able to accept pt when medically ready. Pt and pt daughter notified. Pt daughter wanted to emphasize pt now has hearing aids that she does not want to be misplaced or forgotten at time of discharge. Pt and pt daughter denies any other needs. No other discharge needs identified at this time. SW to continue to follow. Plan: Anticipated discharge to [facility] when medically ready. Pt and pt daughter denies any other needs at this time. SW to continue to follow if any needs arise. SAMEER Hawley
[2017-04-28 16:46] LABS: APPEARANCE,URINE CLEAR (CLEAR,HAZY); COLOR,URINE YELLOW (YELLOW); OCCULT BLOOD,URINE NEGATIVE (NEGATIVE); UROBILINOGEN,URINE NORMAL (NORMAL)
--- NOTE | 2017-04-28 18:36 | NUR ---
Pain Cardiac: Pt denies CP. Tele SR 70-80s with IVCD. Resp: Pt denies SOB at rest. SPO2 mid to high 90s on 2L NC. faint expiratory wheeze. GI/: Pt reports only very mild nausea this AM. No antiemetics needed. Poor appetite, but likes ensure. Neuro: A&Ox3, pt reports significant pain this AM. Dilaudid PO increased and scheduled q8. Roxicodone liquid increased and changed to Q3. 10mg given for pain 10/10, pt quite lethargic one hour after dose. Continuous pulse ox reading 95 steadily, but RR down to 12. Pt does arouse with mild stimuli, but will not stay alert. 3 hours post dose, pt up with family, says pain is much better, scheduled dose delayed until pt LOC improved.
--- NOTE | 2017-04-28 20:22 | NUR ---
Coreg: HS Coreg held the evening as BPs from later afternoon have been trending hypotensive in the 90s/40s
[2017-04-29] VITALS (11 sets, daily range): BP systolic 100–118; BP diastolic 43–76; PULSE 72–83; RESP 11–20; O2SAT 95–98
[2017-04-29] MEDS: oxyCODONE 1 mg/mL 5 mL Liquid PO PRN ×4 (01:46→16:04)
[2017-04-29] MEDS: Meropenem Inj 1,000 MG in 0.9% Sodium Chloride 50 ML IV SCH ×3 (01:46→17:10)
[2017-04-29] MEDS: Omega-3 Fatty Acids 1,000 mg Capsule PO SCH (09:17)
[2017-04-29] MEDS: Pantoprazole 4 mg/mL 10 mL Inj IVPUSH SCH ×2 (09:18→16:30)
[2017-04-29] MEDS: 0.9% Sodium Chloride 1,000 ML IV SCH (09:55)
--- NOTE | 2017-04-29 12:15 | PCM.PALLBR ---
Palliative Care Recommendation 76-year-old female with complex medical history, admitted with intractable epigastric pain found to be related to acute pancreatitis (of unclear causation ) with subsequent finding of ESBL Klebsiella UTI. Also has significant history of PERFECTO but unwilling to use CPAP. Pain initially controlled with Dilaudid STOCK CHASER, eventually transitioned to oral Dilaudid with significant dosage reduction from her usual baseline use because of concerns of lethargy and respiratory depression. As a consequence, has had intractable low back pain (chronic, associated with severe degenerative lumbosacral disease) with consequent anorexia, nausea, etc. which is limiting her recovery. Palliative medicine consulted to assist with symptom management and determination of goals of care. Summary of palliative recommendations: -Symptom management (Pain/other)- today I reviewed her outpatient medication list with nurse at the office of her PCP- she noted that the patient was prescribed Dilaudid, 4 mg Q 6 hr prn (though patient's daughter noted yesterday that she used it only twice daily prn). Has also had prescriptions for Percocet 5/325 for prn use in the past as well. Will adjust Dilaudid frequency upwards to 2 mg PO Q 6 hr scheduled, with oral oxycodone 5 mg oral every 3 hours as needed for breakthrough pain. (Her previous Dilaudid usage at home, according to her daughter, was up to 4 mg twice daily prn. This was decreased at time of admission to 1 mg prn due to concerns of oversedation/ lethargy, and then increased to 2 mg scheduled Q 8 hr on 04/28.) Note that oxycodone dose was decreased today to 5 mg Q 3 hr prn as she seemed too sedated after 10 mg dose.) Continue to monitor response and adjust dosing as needed. Patient's daughter Felicity noted yesterday that pain relief/comfort is the primary goal and was very willing to accept the risk of increasing lethargy, respiratory depression, etc. if patient could be more comfortable. She continues on her usual dose of fluoxetine, 40 mg daily Continue medications for nausea as currently ordered by hospitalist. Reviewed med changes and other orders/plans in detail with her bedside nurse. -DPOA/Advanced Directives/POLST- confirmed the DO NOT RESUSCITATE/DO NOT INTUBATE status today. New POLST completed today with patient and her daughter - see below for details. On 5/30, we discussed artificial nutrition support, and after discussion of various options, goals, patient wishes, etc. decision was made to encourage oral intake, have nurses provide assist with feeding, etc. but not to undertake any artificial nutrition support otherwise. -Family/emotional support- aga Blevins has now moved to [place] and plans on remaining in the area to provide all support needed by her mother. Patient has a son, Kuldip, who lives in [place] but apparently has not been involved in her care. Patient Goals: 1. Patient and her daughter want to be told the truth about her illness, even if it is unpleasant. 2. Patient and her daughter would like to be told prognosis when it can be predicted, to better guide treatment decisions. 3. Patient and her daughter would choose quality of life over quantity of life, and defines quality as relief of discomfort 4. Patient and her daughter would request that comfort care take priority over cognitive/mental confusion. Additional Medical Diagnoses with primary management by Hospitalist team include : # Acute pancreatitis, present on admission, active. Unknown etiology. Improving. Possibly related to her chronic hypercalcemia. LFTs normal, MRCP no biliary obstruction. Initial lipase 3032, CT consistent with acute pancreatitis. Clinical course generally improving but with secondary infection of urine and rising WBC count. Abdominal CT scan was repeated on day #3, with no evidence of abscess or pancreatic cyst. Leukocytosis persists but no other signs of active inflammation. #Pyelonephritis. Significant pyuria with ESBL along sensitive Klebsiella. # Hypokalemia and low magnesium, present on admission, repleted. Improved. Initial K 2.9 and magnesium 1.6. Now resolved # PERFECTO, chronic and stable. Patient shows significant daytime sleepiness. His prior diagnosis of PERFECTO but refuses CPAP due to claustrophobia. I suspect she is experiencing opioid induced respiratory depression # Deconditioning, acute on chronic. Patient's baseline level of mobility is largely one-two room ambulation with walker. Currently she is unable to get out of bed without significant assistance. She has peripheral muscle wasting. She seems unable or unwilling to assist in her own mobilization. I suspect that her current bout of acute pancreatitis may render her permanently nursing- home bound. This would be compounded by opioid related respiratory depression and untreated PERFECTO. # Hypercalcemia, POA. Improved.. Corrected calcium 11 on admission. Etiology unclear. Hypertension, POA. Stable. Hypothyroidism, POA. Stable. History of pericardial effusion ,not evident on current ECHO. Resolved. Problems: End of Life Preferences Per new POLST completed 04/29/17: DO NOT RESUSCITATE/DO NOT INTUBATE/limited interventions/hospitalization okay/ no artificial nutrition Discussed hospice with patient and her daughter today but she is not yet ready to transition to purely comfort care Goals of Care Comfort and pain relief remain the primary goals Disposition To be determined- probable SNF discharge on 04/30 Resuscitation Status Resuscitation Status: DNR/DNI:Do Not Resuscitate/Intubate Limited Interventions: Medications and IV Fluid POLST Updates/Changes Previous POLST?: No POLST Last Review Date: April 29, 2017 Antibiotics: Determine Use or Limitations Artificially Admin Nutrition: No Artifical Nutrition by Tube POLST Discussed with: Patient, Health Care Agent (DPOAHC) POLST Review Outcome: New Form Completed . Advanced Care Planning Address: POLST Pain: Moderate Symptom management: Pain Total time 80 minutes; >50% face to face with patient, providing counselling regarding plans and recommendations, and in care coordination with her medical teams. All the above total time, 50 minutes spent reviewing advanced directive issues and completing a new POLST with the patient and her daughter copies to: Kg Spivey MD Palliative Brief Note Date of Service April 29, 2017 . Return to reevaluate patient. Prior to visiting, reviewed her updated records in the EMR in detail and spoke with her bedside nurse. On my arrival, she is resting but awakens easily. Now that she has her left hearing aid she is much better able to interact. She noted recurrent pain in her low back- her last dose of Dilaudid was held by her nighttime nurse out of concern for excessive somnolence. She denies any dyspnea, nausea or other pain. Reviewed her PT notes- she was able to get up and ambulate with walker yesterday PT is recommending daily therapy and probable SNF placement. On exam, elderly woman lying in bed in no distress. Vital signs noted. Skin pale, warm and dry. Head and neck exam without acute findings. Lungs clear anterolaterally, heart sounds regular, abdomen rounded, soft and benign. Labs reviewed in detail. Return later to recheck and to speak with the patient and her daughter. Reviewed her treatments up to this point and her tentative disposition plan- SNF probably tomorrow. Answer questions patient and her daughter had. Discussed hospice- at this time, consistent with patient and her daughter's wishes, she is not ready for hospice status, but daughter will keep this in mind and will request informational visit at some point in the future if it appears beneficial. We then discussed her advanced directive wishes once again, and with patient's daughter/POA completed a new POLST. Original and one copy given to the patient' s daughter Felicity, another copy is left in her hospital chart and another in her palliative medicine file. London Najera MD April 29, 2017 12:15
--- NOTE | 2017-04-29 13:22 | NUR ---
NUTRITION FOLLOW-UP: ASSESS: 76 YO female admitted with acute pancreatitis. Her diet was advanced to General on 04/25. She has been tolerating bites of food and Ensure which she is receiving on all trays. Palliative care is involved for goals of care. Per palliative care note, family does not want nutrition support. PMHx: HTN, hypothyroid, ischemic colitis, gastric bypass, pericarditis, hearing loss, hypercalcemia. DIET: General, PO bites LABS: Reviewed. Vehicle Controls Engineer .34, Glu 100, alb 2.3 MEDICATIONS: Reviewed. GI symptoms / stool: BMx1 04/29 Skin Integrity: No issues reported. ANTHROPOMETRICS: Current Wt: 83.4 kg BMI: 33.6 kg/m2. Admit weight: 78.3 kg IBW: 50.0 kg ESTIMATED NEEDS: Pancreatitis Calories: 1950-2340kcal (25 - 30 kcal / kg BW) Protein: 80-115g protein (1.0 - 1.5 g / kg BW) NUTRITION DIAGNOSIS: 1) Inadequate oral intake related to altered GI function, as evidenced by NPO status x 3 D.--PERSISTS INTERVENTION: 1) Continue Ensure on all trays per pt preference and encourage PO intake with 1:1 feeding MONITOR/EVALUATE: wt, PO intake, labs, GI/nutrition status. Follow up per moderate nutrition risk guidelines.
--- NOTE | 2017-04-29 13:41 | PCM.PNMED ---
Subjective Date of Service April 29, 2017 Subjective She is doing a little bit better today. She still has back pain. She initially complained of abdominal pain but when asked where it is more in the back. No nausea. She does have anorexia. No bowel movement. No urination today. She denies any cough or dyspnea. No overnight events. Exam Vital Signs Vital Sign - Last Date Time Temp Pulse Resp B/P Pulse Ox O2 Delivery O2 Flow Rate FiO2 04/29/17 11:43 36.6 77 15 104/67 97 04/29/17 11:23 Supplement Oxygen 04/29/17 07:29 2.00 Intake and Output 04/28/17 04/28/17 04/29/17 Cumulative From/Thru 15:00 23:00 07:00 04/22/17 12:46 - 04/29/17 05:23 Intake Total 1643 ml 1085 ml 09724 ml Output Total 400 ml 5700 ml Balance 1643 ml 685 ml 45619 ml Intake Oral 1450 ml 400 ml 6157 ml IV Total 193 ml 685 ml 44168 ml Output Urine Total 400 ml 5300 ml Stool Total 300 ml Urine/Stool Mix 100 ml # Voids 7 1 18 # Bowel Movements 0 1 10 Exam Alert and oriented , no distress. Fluent speech Anicteric sclera. Lungs are clear with normal rate and effort Heart is regular without murmur gallop or rub Abdomen soft nontender, flat Extremities are free of edema. Skin is free of rash or lesions. IVs and Medications Medications Reviewed: Medications were reviewed in detail Lab and Diagnostics Result Diagram: 04/28/17 1423 04/25/17 0825 Microbiology MEET CULT URINE Final 04/26/17-734 Organism 1 K. PNEUMONIAE ESBL HEATING EQUIPMENT INSTALLER U COLONY COUNT/QUANTITY >100,000 CFU/ml K. PNEUMONIAE ESBL HEATING EQUIPMENT INSTALLER PLEASE NOTE This isolate has developed multiple resistance mechanisms to various classes of antibiotics. Consider Contact isolation precautions for in-patients. Contact Pharmacy. Consider Infectious Disease Specialist Consultation. CALLED TO RONAK Arguello INFECTION CONTROL 04/26 730 LANCE CALLED TO YIFAN Manzano 04/26 735 LANCE 1. K. PNEUMONIAE ESBL HEATING EQUIPMENT INSTALLER M.I.C Interp --------- ------ * AMOXICILLIN/CLAVULATE 16 I * AMPICILLIN >=32 R * CEFAZOLIN (CEPHALOSPORIN) UTI 64 R * CEFEPIME >=64 R * CEFTRIAXONE >=64 R * CEFUROXIME SODIUM >=64 R * CIPROFLOXACIN 2 I * ERTAPENEM <=0.5 S * GENTAMICIN >=16 R * IMIPENEM <=1 S * LEVOFLOXACIN 1 S * NITROFURANTOIN 64 I * TETRACYCLINE >=16 R * TOBRAMYCIN >=16 R * TRIMETHOPRIM/SULFAMETHOXAZOLE >=320 R . X-Rays, CTs and MRIs CT abdomen and pelvis on 04/22 at [facility] shows acute pancreatitis MR ABDOMEN MRCP IMPRESSION: 1. Findings of acute pancreatitis, without discrete peripancreatic fluid collections. 2. No intra-or extrahepatic biliary ductal dilation or stones, status post cholecystectomy. Pancreatic ducts are nondilated and not well-seen, and the 3. Nondistended main pancreatic duct is not well-visualized, and therefore any congenital variants such as pancreas divisum cannot be excluded. 4. 3.9 cm inferior left renal cortical simple cyst. Dictated by: Randy Sahu M.D. on 04/22/2017 at 19:43 PROCEDURE: CT ABDOMEN WITH CONTRAST ([id number]) IMPRESSION: 1. Resolving peripancreatic fluid. No abscess. Dictated by: Dawit Fortune M.D. on 04/25/2017 at 12:51 . Assessment & Plan Harmeet Razo is a 76-year-old lady with past medical history of hypertension, hypothyroidism, ischemic colitis, gastric bypass surgery, pericarditis, chronic hypercalcemia, alpha-1 antitrypsin gene carrier, presented to [facility] with epigastric pain, nausea and vomiting of 2 days. Currently under treatment for pancreatitis. Hospital day #4 # Acute pancreatitis, present on admission, improving. Slow advance of diet. Clinically this is going well. She still is not eating a lot. #Pyelonephritis. Significant pyuria with ESBL Klebsiella. - On meropenem; will continue for now. This was started on 04/24. A repeat urinalysis yesterday looked to be clear. Curbside with infectious disease indicates we can likely stop antibiotics today or tomorrow. She may be able to discharge back to senior care facility tomorrow if she is improving clinically. # Hypokalemia and low magnesium, present on admission, resolved. # PERFECTO, chronic and stable. Patient shows significant daytime sleepiness. His prior diagnosis of PERFECTO but refuses CPAP due to claustrophobia. I suspect she is experiencing opioid induced respiratory depression - I counseled patient and family on need to minimize opioid use due to risk of respiratory failure # Deconditioning, acute on chronic. Patient's baseline level of mobility is largely one-two room ambulation with walker. Currently she is unable to get out of bed without significant assistance. She has peripheral muscle wasting. She seems unable or unwilling to assist in her own mobilization. I suspect that her current bout of acute pancreatitis may render her permanently nursing- home bound. This would be compounded by opioid related respiratory depression and untreated PERFECTO. Discussion of goals of care today is documented separately - Palliative care consult - Continue aggressive physical therapy efforts - Recommend SNF discharge, family has accepted this fact the patient was accepted at [facility] nursing facility likely for tomorrow, April 30. # Hypercalcemia, POA. Improved.. Corrected calcium 11 on admission. Etiology unclear. -SPEP, PTH RP pending -PTH normal -Vitamin D level 16, started vitamin D, will follow with occasional blood tests. Full recheck a CMP tomorrow morning. Hypertension, POA. Stable. -Held home medications. Resume today Hypothyroidism, POA. Stable. -Continue Synthroid History of pericardial effusion ,not evident on current ECHO. Resolved. -Hold diuretics for now. Prophylaxis -Lovenox and Protonix DNR/DNI , verified from patient. She names her daughter Felicity as POA tel [phone] Disposition discharge to SNF possibly on . VTE Prophylaxis: Sub-Q Enoxaparin VTE Mechanical Devices: Intermittant Pneumatic CD Resuscitation Status: DNR/DNI:Do Not Resuscitate/Intubate Hay House MD April 29, 2017 13:41
--- NOTE | 2017-04-29 16:20 | NUR ---
Social Work Note: Continued Discharge Planning Data& Assessment: Per MD in morning rounds, pt may require IV abx ertapenum. ALLY called Jodie from [facility] to see if they would be able to provide that abx to pt as it can be very expensive. Jodie explained she would ask her human resources department supervisor and let SW know if they would be able to meet that need for pt. SW to continue to follow. Plan: Anticipated discharge to [facility] when medically ready pending final IV abx recommendations. ALLY to continue to follow. SAMEER Hawley
--- NOTE | 2017-04-29 16:41 | NUR ---
A/Ox3, makes needs known. Lethargic, responds to verbal stimuli. Able to assist with bed mobility, 1 PA with FWW. Continues on telemetry, sinus rhythm 70's and 80's. LS clear bilat. Maintains 98% SpO2 on 2L NC, deep breathing/coughing encouraged. Continent of b/b using bedside commode. Bowel tones present all quadrants. Pt c/o back pain and pain in sides of trunk MD jazzmine aware, pain managed w PRN liquid oxycodone 5mg x2 and dilaudid 2mg q6. Consistently rates pain 10/10. No diaphoresis, tachycardia, tachypnea, or grimace noted. Protonix order changed from IV to PO per Dr. House as pt is able to tolerate PO meds. Slept off and on today. Addendum: 04/29/17 at 1759 by CHRIS BAUTISTA RN Pt voided x2 this shift totalling ~200 cc. NS running at [employer], poor PO intake. paged with YONAS. Will encourage increased fluid intake.
[2017-04-29] MEDS: Albuterol 2.5 mg/3 mL Inhalation Solution NEB PRN ×2 (18:04→21:01)
[2017-04-29] MEDS: Pantoprazole 40 mg ER24 Tablet PO SCH (21:34)
[2017-04-30 00:21] VITALS: PULSE 79; RESP 20; O2SAT 95
[2017-04-30] MEDS: Albuterol 2.5 mg/3 mL Inhalation Solution NEB PRN (00:21)
[2017-04-30] MEDS: Meropenem Inj 1,000 MG in 0.9% Sodium Chloride 50 ML IV SCH ×2 (00:29→08:42)
[2017-04-30 03:06] LABS: Mean Corpuscular Hemoglobin 27.7 pg (27.0-35.0); Mean Corpuscular Volume 92.7 fL (81-100)
[2017-04-30 03:08] VITALS: BP 124/54; PULSE 82; RESP 20; O2SAT 96
[2017-04-30 05:29] VITALS: PULSE 78
[2017-04-30 07:25] VITALS: BP 112/48; PULSE 78; RESP 18; O2SAT 96
--- NOTE | 2017-04-30 07:25 | NUR ---
UOP/Pain/Respiratory Pt had only 50mL UOP for a large portion of the night. Bladder scan showed 0mL residual. PO fluids encouraged, NS@50 continues. MD aware. Pt able to put out 300mL more at the end of shift. Pt on and off drowsy throughout night. Was still easily able to wake and RR WNL. Pt given Dilaudid as scheduled for 09/08 back pain and appeared to quickly fall asleep between care interventions. Repositioning also done for comfort. Pt monitored on AIRCRAFT AVIONICS TECHNICIAN, alert and voicing needs. Pt up to BSC once but was very SOB with increased wheezing and sounding almost squeaky. This would improve as pt rested and neb treatments also helpful, MD aware.
[2017-04-30 08:00] VITALS: PULSE 76
[2017-04-30] MEDS: 0.9% Sodium Chloride 1,000 ML IV SCH (08:38)
[2017-04-30] MEDS: Pantoprazole 40 mg ER24 Tablet PO SCH (08:39)
[2017-04-30] MEDS: Omega-3 Fatty Acids 1,000 mg Capsule PO SCH (08:44)
--- NOTE | 2017-04-30 09:18 | PCM.PALLBR ---
Palliative Care Recommendation 76-year-old female with complex medical history, admitted with intractable epigastric pain found to be related to acute pancreatitis (of unclear causation ) with subsequent finding of ESBL Klebsiella UTI. Also has significant history of PERFECTO but unwilling to use CPAP. Pain initially controlled with Dilaudid STOPPER GRINDER, eventually transitioned to oral Dilaudid with significant dosage reduction from her usual baseline use because of concerns of lethargy and respiratory depression. As a consequence, has had intractable low back pain (chronic, associated with severe degenerative lumbosacral disease) with consequent anorexia, nausea, etc. which is limiting her recovery. Palliative medicine consulted to assist with symptom management and determination of goals of care. Summary of palliative recommendations: -Symptom management (Pain/other)- today I reviewed her outpatient medication list with nurse at the office of her PCP- she noted that the patient was prescribed Dilaudid, 4 mg Q 6 hr prn (though patient's daughter noted yesterday that she used it only twice daily prn). Has also had prescriptions for Percocet 5/325 for prn use in the past as well. Although, pt complains of pain at 10,and looks like she is having pain about 5-6 /10 breakthrough right now, I am concerned about increasing her dilaudid. I think she may become somnolent. I recommend we do NOT adjust dose of dilaudid upward today. Instead, continue current dose of dilaudid and encourage the RN to give more frequent oxycodone breakthrough doses for now. In another 36-48 hours, consider increasing the dilaudid to 4mg po q 8hours. 1. Continue Dilaudid 2 mg PO Q 6 hr scheduled. 2. Stop oral oxycodone 5 mg oral every 3 hours as needed for breakthrough pain. Rn reports that pt gets quite sedated by 5mg oxycodone. 3. Replace oral oxycodone for breakthrough pain with oral dilaudid 2mg po q 3 hours for breakthrough pain. It is less sedating for patient. Note: Patient's daughter Felicity said 04/28 that pain relief/comfort is the primary goal and was very willing to accept the risk of increasing lethargy, respiratory depression, etc. if patient could be more comfortable. She continues on her usual dose of fluoxetine, 40 mg daily Continue medications for nausea as currently ordered by hospitalist. Reviewed med changes and other orders/plans in detail with her bedside nurse. CHELSIEOA/Advanced Directives/POLST- confirmed the DO NOT RESUSCITATE/DO NOT INTUBATE status today. 04/29: New POLST completed with Dr. Najera, patient and her daughter- see below for details. 04/28: Dr. Virk counseled family and pt on artificial nutrition support, and after discussion of various options, goals, patient wishes, etc. decision was made to encourage oral intake, have nurses provide assist with feeding, etc. but not to undertake any artificial nutrition support otherwise. Family/emotional support: daughter Felicity has now moved to [place] and plans on remaining in the area to provide all support needed by her mother. Patient has a son, Kuldip, who lives in [place] but apparently has not been involved in her care. Patient Goals: 1. Patient and her daughter want to be told the truth about her illness, even if it is unpleasant. 2. Patient and her daughter would like to be told prognosis when it can be predicted, to better guide treatment decisions. 3. Patient and her daughter would choose quality of life over quantity of life, and defines quality as relief of discomfort 4. Patient and her daughter would request that comfort care take priority over cognitive/mental confusion. Additional Medical Diagnoses with primary management by Hospitalist team include : # Acute pancreatitis, present on admission, active. Unknown etiology. Improving. Possibly related to her chronic hypercalcemia. LFTs normal, MRCP no biliary obstruction. Initial lipase 3032, CT consistent with acute pancreatitis. Clinical course generally improving but with secondary infection of urine and rising WBC count. Abdominal CT scan was repeated on day #3, with no evidence of abscess or pancreatic cyst. Leukocytosis persists but no other signs of active inflammation. #Pyelonephritis. Significant pyuria with ESBL along sensitive Klebsiella. # Hypokalemia and low magnesium, present on admission, repleted. Improved. Initial K 2.9 and magnesium 1.6. Now resolved # PERFECTO, chronic and stable. Patient shows significant daytime sleepiness. His prior diagnosis of PERFECTO but refuses CPAP due to claustrophobia. I suspect she is experiencing opioid induced respiratory depression # Deconditioning, acute on chronic. Patient's baseline level of mobility is largely one-two room ambulation with walker. Currently she is unable to get out of bed without significant assistance. She has peripheral muscle wasting. She seems unable or unwilling to assist in her own mobilization. I suspect that her current bout of acute pancreatitis may render her permanently nursing- home bound. This would be compounded by opioid related respiratory depression and untreated PERFECTO. # Hypercalcemia, POA. Improved.. Corrected calcium 11 on admission. Etiology unclear. Hypertension, POA. Stable. Hypothyroidism, POA. Stable. History of pericardial effusion ,not evident on current ECHO. Resolved. Problems: End of Life Preferences Per new POLST completed 04/29/17: DO NOT RESUSCITATE/DO NOT INTUBATE/limited interventions/hospitalization okay/ no artificial nutrition Discussed hospice with patient and her daughter today but she is not yet ready to transition to purely comfort care Goals of Care Comfort and pain relief remain the primary goals Disposition To be determined- probable SNF discharge on 04/30 Resuscitation Status Resuscitation Status: DNR/DNI:Do Not Resuscitate/Intubate Limited Interventions: Medications and IV Fluid POLST Updates/Changes Previous POLST?: No POLST Last Review Date: April 29, 2017 Antibiotics: Determine Use or Limitations Artificially Admin Nutrition: No Artifical Nutrition by Tube POLST Discussed with: Patient, Health Care Agent ([facility]) POLST Review Outcome: New Form Completed . Pain: Moderate Total time 35 minutes; >50% face to face with patient and/or family, providing counselling regarding plans and recommendations, and in care coordination with his/her medical teams. I also spent an additional [ ] minutes counseling for advanced care planning with the patient/the patients family/the surrogate decision maker. Palliative Brief Note Date of Service Apr 30, [address] Celestin rounding this morning to evaluate whether pain management is effective for patient. Reviewed EMR records in detail prior to visiting patient. She is alert, sitting up in bed eating breakfast. retail loan originator assistant is helping her. She is cheerful, smiling, words are clear, not slurred. She reports stiffness in arms and back pain that she rates "almost as bad as childbirth." She gives it "the highest number." By my assessment, I'd rate her pain at 5-6/10, but she uses the number 10. She denies any dyspnea, nausea or constipation (last BM evening shift 04/29). Per EMR no doses of Dilaudid were withheld and she had two breakthrough doses of oxycodone in last 24 hours. Per PT notes- she was able to get up and ambulate with walker. PT is recommending daily therapy and probable SNF placement. On exam, elderly woman sitting up in bed in no distress. Vital signs noted. Skin pale, warm and dry. Head and neck exam without acute findings. Lungs clear anterolaterally, heart sounds regular, abdomen rounded, soft and benign. Labs reviewed in detail. Return later to recheck and to speak with the patient and her daughter. Reviewed her treatments up to this point and her tentative disposition plan- SNF possibly later today. Elissa Celestin MD Apr 30, 2017 09:18
--- NOTE | 2017-04-30 10:20 | NUR ---
Social Work: Discharge D: Pt discussed in am rounds. Pt is likely medically ready for discharge to skilled rehab pending final acceptance for IV Ertapenum. DRAWER IN PLAIN [employer]OM spoke with Jodie at [facility] who states that they can accept that patient with the IV Medication. DRAWER IN PLAIN LOOM informed MD and writing orders for discharge. Pt has been ambulating approximately 10 feet with PT with FWW, sitting at EOB. T/c to patient's daughter to confirm discharge plan; she agrees with the plan for a discharge to [facility] via cabulance. PPW on chart. PASSR completed A: Pt who will require skilled rehab and nursing for safe discharge P: Pt to discharge to [facility] with Dr. Guaman to follow. DRAWER IN PLAIN LOOM to fax orders and arrange for transportation once orders finalized. SAMEER Cyr Addendum: 04/30/17 at 1122 by ZAHEER LA Order, PASSR, Instructions and Prescriptions faxed to [facility] and copies placed on chart. Jodie at [facility] has arranged for transport at 1300 today. Bedside RN and family aware.
--- NOTE | 2017-04-30 10:36 | PCM.DIMED ---
Discharge Instructions Date of Service Apr 30, 2017 Dates of Hospitalization April 22, 2017 at 11:05 Discharge Diagnosis Discharge Diagnosis 1. Acute pancreatitis 2.Pyelonephritis. 3. Hypokalemia 4. PERFECTO 5. Deconditioning, acute on chronic. 5. Hypercalcemia 6. Hypertension 7. Hypothyroidism 8. H/o Pericardial effusion Diet Discharge Diet: Low fat, Low Sodium Activity Discharge Activity: No restrictions Patient Instructions Follow-up with PCP in: 1 week (Primary care and paliative care ) London Mcintosh MD Apr 30, 2017 10:36
[2017-04-30] MEDS ORDERED: CHOL100043 PO (10:40)
[2017-04-30] MEDS ORDERED: HYDR-3939 PO (10:40)
[2017-04-30] MEDS ORDERED: OXYC5SOL11 PO (10:40)
[2017-04-30] MEDS ORDERED: ERTA1VIA2 IV (10:54)
--- NOTE | 2017-04-30 10:55 | PCM.DIMED ---
Discharge Instructions Date of Service Apr 30, 2017 Dates of Hospitalization April 22, 2017 at 11:05 Discharge Diagnosis Discharge Diagnosis 1. Acute pancreatitis 2.Pyelonephritis. 3. Hypokalemia 4. PERFECTO 5. Deconditioning, acute on chronic. 5. Hypercalcemia 6. Hypertension 7. Hypothyroidism 8. H/o Pericardial effusion Diet Discharge Diet: Low fat, Low Sodium Activity Discharge Activity: No restrictions Patient Instructions Follow-up plan Ertapenem 1 gr IV daily for 5 days . Follow up with infectious Disease as outpatient in 5 days Follow-up with PCP in: 1 week (Primary care and paliative care ) London Mcintosh MD Apr 30, 2017 10:55
--- NOTE | 2017-04-30 14:06 | NUR ---
Discharge Pt discharged to [facility] [place] today at 14:10. Pt off floor via wheel chair with all belongings in the company of the transporter and family to [facility]. Packet sent with pt. Report given to jalen at [facility]. pain med was given early per Dr to cover pt's pain needs during transport since next dose not due till 14:30 and there would have been a gap in coverage. Order to keep IV given from provider. IV was painful and leaking, so new IV started prior to DC.
[2017-04-30] MEDS ORDERED: oxyCODONE 1 mg/mL 5 mL Liquid PO PRN (14:30)
--- NOTE | 2017-04-30 15:39 | PCM.DC.MED ---
Discharge Summary Date of Service Apr 30, 2017 Dates of Hospitalization Date of Hospital Admission April 22, 2017 at 11:05 Date of Discharge: Apr 30, 2017 Providers: Admitting Physician: Marcell Lundberg MD Primary Care Physician: Kg Spivey MD Attending Physician: Marcell Lundberg MD Diagnosis at Time of Discharge Diagnosis at Time of Discharge 1. Acute pancreatitis 2.Pyelonephritis. 3. Hypokalemia 4. PERFECTO 5. Deconditioning, acute on chronic. 5. Hypercalcemia 6. Hypertension 7. Hypothyroidism 8. H/o Pericardial effusion 9. Acute respiratory failure with hypoxia ( Resolved ) Procedures XRay, CTs & MRIs CT abdomen and pelvis on 04/22 at [facility] shows acute pancreatitis MR ABDOMEN MRCP IMPRESSION: 1. Findings of acute pancreatitis, without discrete peripancreatic fluid collections. 2. No intra-or extrahepatic biliary ductal dilation or stones, status post cholecystectomy. Pancreatic ducts are nondilated and not well-seen, and the 3. Nondistended main pancreatic duct is not well-visualized, and therefore any congenital variants such as pancreas divisum cannot be excluded. 4. 3.9 cm inferior left renal cortical simple cyst. Dictated by: Randy Sahu M.D. on 04/22/2017 at 19:43 PROCEDURE: CT ABDOMEN WITH CONTRAST ([id number]) IMPRESSION: 1. Resolving peripancreatic fluid. No abscess. Dictated by: Dawit Fortune M.D. on 04/25/2017 at 12:51 . Brief History Per admission H&P: 76-year-old lady with past medical history of hypertension, hypothyroidism, history of ischemic colitis, history of gastric bypass surgery, history of pericarditis, chronic hypercalcemia, alpha-1 antitrypsin gene carrier, presented to [facility] with epigastric pain, nausea and vomiting of 2 days. Patient states she developed progressively worsening epigastric pain. Pain is continuous,10/10, nonradiating. She also has nausea and episodes of vomiting. Denies fever. Denies diarrhea. Denies other complaints. Denies alcohol drinking. Has history of cholecystectomy in 70s. UG ED course: Unremarkable vital signs wbc 12.7, hemoglobin 12.9, sodium 137, potassium 2.9, chloride 100, bicarbonate 33, BUN12, creatinine 0.84, protein 7.2, albumin 2.8, globulin 4.4, calcium 9.5 , corrected calcium 10.5 Tbili 0.8, alkaline phosphatase 101, ALT 25, AST 43,lipase 3032, troponin negative, CPK 21, magnesium 1.6 CT abdomen pelvis reportedly showed acute pancreatitis, no mention of dilated biliary system IV fluid given , Dilaudid for pain given. Potassium and magnesium repeleted. Transfer to [facility] due to bed unavailability Since admission, pancreatitis has improved. Patient was, however, found to have UTI with ESBL Klebsiella and continues on antibiotic therapy. She complains frequently of severe back pain- this is the primary manifestation of her chronic pain but there have also been concerns that it may be related to her pyelonephritis, pancreatitis or other. There has been concern of PERFECTO and risk of respiratory suppression by her narcotics which led to her usual narcotic regimen being decreased. Palliative medicine was consulted to assist with symptom management and discussion of goals of care with the patient and her family. Prior to visiting today, I reviewed her records in the EMR in detail, spoke with her hospitalist and her bedside nurse and with her hospitalist. Returned later and spoke at length with her daughter/caregiver Felicity. 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 Her pain medications were decreased at admission, and with her prolonged bed rest and other medical problems, she has had significant flare of her back symptoms. Patient told me that she becomes nauseated when the pain becomes too great. Because of the discomfort in the nausea her oral intake has significantly declined. Felicity was anxious about this and inquired about various means of nutritional support. Also was concerned about limited activity/lack of PT and we discussed this. We talked about possible eventual disposition to SNF. Felicity remains committed to providing whatever care the patient needs, but understands that she may require SNF placement. She noted that patient has been deteriorating and expressing the wish that she did not want to return to the hospital and that she be allowed to pass away peacefully, but when her abdominal pain became too severe at home, she was willing to be admitted. We reviewed her various medical diagnoses and talked about current and future possible treatments. Felicity expressed the desire to be told the truth/no "sugarcoating" about patient's status and prognosis. Felicity noted patient usually takes Dilaudid, 4 mg BID. Doses occasionally given early, but denies extra doses. Has used other meds for breakthrough, but unclear what exactly. May have had facial swelling in past with oxycodone, but no abnormal effects here, so will continue it for breakthrough (which Felicity was pleased to hear). Hospital Course Harmeet Razo is a 76-year-old lady with past medical history of hypertension, hypothyroidism, ischemic colitis, gastric bypass surgery, pericarditis, chronic hypercalcemia, alpha-1 antitrypsin gene carrier, presented to [facility] with epigastric pain, nausea and vomiting of 2 days. Currently under treatment for pancreatitis. Hospital day #4 # Acute pancreatitis, present on admission, improving. Slow advance of diet. Clinically this is going well. She still is not eating a lot. #Pyelonephritis. Significant pyuria with ESBL Klebsiella. - On meropenem; will continue for now. This was started on 04/24. -May switched to Ertapenem on discharge # Hypokalemia and low magnesium, present on admission, resolved. # PERFECTO, chronic and stable. Patient shows significant daytime sleepiness. His prior diagnosis of PERFECTO but refuses CPAP due to claustrophobia. I suspect she is experiencing opioid induced respiratory depression - I counseled patient and family on need to minimize opioid use due to risk of respiratory failure # Deconditioning, acute on chronic. Patient's baseline level of mobility is largely one-two room ambulation with walker. Currently she is unable to get out of bed without significant assistance. She has peripheral muscle wasting. She seems unable or unwilling to assist in her own mobilization. I suspect that her current bout of acute pancreatitis may render her permanently nursing- home bound. This would be compounded by opioid related respiratory depression and untreated PERFECTO. Discussion of goals of care today is documented separately - Palliative care consult and recommendation noted - Continue aggressive physical therapy efforts - Patient is discharged to SNF # Hypercalcemia, POA. Improved.. Corrected calcium 11 on admission. Etiology unclear. -SPEP, PTH RP pending -PTH normal -Vitamin D level 16, started vitamin D, will follow with occasional blood tests. Full recheck a CMP tomorrow morning. Hypertension, POA. Stable. -Held home medications. Hypothyroidism, POA. Stable. -Continue Synthroid - Acute respiratory failure with hypoxia : Resolved History of pericardial effusion ,not evident on current ECHO. Resolved. Prophylaxis -Lovenox and Protonix DNR/DNI , verified from patient. She names her daughter Felicity as ENRIQUE tel [phone] Patient is discharged to SNF in stable condition Exam Vital Signs (Last) Date Time Temp Pulse Resp B/P Pulse Ox O2 Delivery O2 Flow Rate FiO2 04/30/17 10:01 Supplement Oxygen 04/30/17 08:00 76 04/30/17 07:25 36.7 18 112/48 96 2.00 Exam General: Obese female . NAD. In bed comfortably . Neck: no apparent JVD, trachea is midline Chest: Normal respiratory effort Lung : clear to auscultation, no wheezing. Cardiac: S1S2, no murmur, no gallop. Abdomen: BS normal, non-tender to palpate Extremities: No significant edema, no cyanosis Neuro: Grossly intact Test 04/22/17 12:01 04/22/17 15:05 04/23/17 07:02 04/24/17 04:50 Erythrocyte Sedimentation Rate 29mm/hr (0-40) Thyroid Stimulating Hormone (TSH) 0.585uIU/mL (0.450-4.500) Free Thyroxine 1.49ng/dL (0.82-1.77) Globulin (PEP) 3.7g/dL (2.2-3.9) Albumin/Globulin Ratio 0.8 (0.7-1.7) Zrtbs-2-Slotzzipz 0.2g/dL (0.0-0.4) Pvzlx-8-Cakycqjtp 0.8g/dL (0.4-1.0) Beta Globulins 0.9g/dL (0.7-1.3) Gamma Globulins 1.8g/dL (0.4-1.8) Serum Monoclonal Protein 0.5g/dL (Not Observed) Protein Electrophoresis Comment Comment (.) Protein Electrophoresis Interpret Comment (.) Vitamin D 25-Hydroxy 16.9ng/mL (30.0-100.0) Phosphorus Level 3.7mg/dL (2.5-4.9) Pro-B-Type Natriuretic Peptide 1063pg/mL (0-738) Lipase 746U/L (13-60) Parathyroid Hormone (Intact) 25pg/mL (15-65) Neutrophils (%) (Auto) 92.2% (40-74) Lymphocytes (%) (Auto) 3.2% (14-46) Monocytes (%) (Auto) 3.5% (4-12) Eosinophils (%) (Auto) 0.3% (0-5) Basophils (%) (Auto) 0.1% (0-3) Magnesium Level 2.1mg/dL (1.6-2.6) Triglycerides Level 110mg/dL (0-149) Cholesterol Level 114mg/dL (100-199) LDL Cholesterol, Calculated 64.000mg/dL (0-99) VLDL Cholesterol 22.000mg/dL HDL Cholesterol 28mg/dL (>39) Cholesterol/HDL Ratio 4.07 (0.0-4.4) Procalcitonin 0.11ng/mL (0.00-0.08) Parathyroid Hormone Related Peptide <1.1pmol/L (.) Test 04/28/17 15:43 04/30/17 02:50 Urine Color Yellow (YELLOW) Urine Appearance Clear (CLEAR,HAZY) Urine pH 6.0 (5.0-8.0) Urine Specific [place] 1.010 (1.003-1.035) Urine Protein Tracemg/dL (NEG,TRACE) Urine Glucose (UA) Negativemg/dL (NEGATIVE) Urine Ketones Negativemg/dL (NEGATIVE) Urine Occult Blood Negative (NEGATIVE) Urine Nitrite Negative (NEGATIVE) Urine Bilirubin Negative (NEGATIVE) Urine Urobilinogen Normalmg/dL (NORMAL) Urine Leukocyte Esterase Trace (NEGATIVE) Urine RBC 0-2/hpf (0-2) Urine WBC 6-10/hpf (0-5) Urine Epithelial Cells Few/hpf (NONE-MOD) Urine Crystals None seen (NONE SEEN) Urine Bacteria Few/hpf (NONE-FEW) Urine Hyaline Casts None/lpf (NONE) Urine Granular Casts None seen (NONE SEEN) Urine Waxy Casts None seen (NONE SEEN) Urine Red Blood Cell Casts None seen (NONE SEEN) Urine White Blood Cell Casts None seen (NONE SEEN) Urine Mucus None seen (None Seen) Urine Trichomonas None seen (NONE SEEN) Urine Yeast None (NONE SEEN) Urinalysis Comment None Urine Culture Reflexed Indicated White Blood Count 14.6th/mm3 (3.8-10.1) Red Blood Count 3.29mil/mm3 (3.90-5.20) Hemoglobin 9.1g/dL (12.0-15.6) Hematocrit 30.5% (35.0-46.0) Mean Corpuscular Volume 92.7fL (81-100) Mean Corpuscular Hemoglobin 27.7pg (27.0-35.0) Mean Corpuscular Hemoglobin Concent 29.8% (32.0-37.0) Red Cell Distribution Width 16.5% (12.3-15.4) Platelet Count 228bil/L (150-400) Sodium Level 137mEq/L (134-144) Potassium Level 4.5mEq/L (3.5-5.2) Chloride Level 102mEq/L (97-108) Carbon Dioxide Level 25mmol/L (18-29) Blood Urea Nitrogen 11mg/dL (8-27) Creatinine 0.41mg/dL (0.57-1.00) Estimat Glomerular Filtration Rate 215mL/min (>59) Glucose Level 157mg/dL (60-99) Calcium Level 10.2mg/dL (8.5-10.1) Total Bilirubin 0.3mg/dL (0.0-1.2) Aspartate Amino Transf (AST/SGOT) 40U/L (0-50) Alanine Aminotransferase (ALT/SGPT) 21U/L (0-32) Alkaline Phosphatase 87U/L (25-165) Total Protein 5.7g/dL (6.4-8.4) Albumin 2.1g/dL (3.4-5.0) Microbiology Results MEET CULT URINE Final 04/26/17-734 Organism 1 K. PNEUMONIAE ESBL RISK OFFICER U COLONY COUNT/QUANTITY >100,000 CFU/ml K. PNEUMONIAE ESBL RISK OFFICER PLEASE NOTE This isolate has developed multiple resistance mechanisms to various classes of antibiotics. Consider Contact isolation precautions for in-patients. Contact Pharmacy. Consider Infectious Disease Specialist Consultation. CALLED TO RONAK Arguello INFECTION CONTROL 04/26 730 LANCE CALLED TO YIFAN Manzano 04/26 735 LANCE 1. K. PNEUMONIAE ESBL RISK OFFICER M.I.C Interp --------- ------ * AMOXICILLIN/CLAVULATE 16 I * AMPICILLIN >=32 R * CEFAZOLIN (CEPHALOSPORIN) UTI 64 R * CEFEPIME >=64 R * CEFTRIAXONE >=64 R * CEFUROXIME SODIUM >=64 R * CIPROFLOXACIN 2 I * ERTAPENEM <=0.5 S * GENTAMICIN >=16 R * IMIPENEM <=1 S * LEVOFLOXACIN 1 S * NITROFURANTOIN 64 I * TETRACYCLINE >=16 R * TOBRAMYCIN >=16 R * TRIMETHOPRIM/SULFAMETHOXAZOLE >=320 R . Discharge Medications Discharge Medications Aspirin (Aspirin) 81 Mg Tablet 81 MG PO DAILY (Reported) Carvedilol (Carvedilol) 3.125 Mg Tablet 1 TABLET PO BID (Reported) Cholecalciferol (Vitamin D3) (Vitamin D) 1,000 Unit Tablet 1,000 UNIT PO DAILY Prescribed by: SILVIA MCINTOSH MD Ertapenem Sodium (Invanz) 1 Gm Vial.port 1 GM IV DAILY Prescribed by: SILVIA MCINTOSH MD Fluoxetine (Fluoxetine) 40 Mg Capsule 40 MG PO DAILY (Reported) Levothyroxine (Levothyroxine) 75 Mcg Tablet 75 MCG PO DAILY (Reported) [place]-3 Fatty Acids/Fish Oil ([place] 3 1,000 mg Softgel) 1 Each Capsule 1 EACH PO DAILY (Reported) Omeprazole (Omeprazole) 20 Mg Tablet.dr 20 MG PO DAILY Prescribed by: NUNO MONTEJO MD Potassium Chloride (Potassium Chloride) 20 Meq Tab.er.prt 1 TABLET PO DAILY ( Reported) Psyllium Seed (with Sugar) (Metamucil Packet) 1 Each Packet 1 EACH PO DAILY ( Reported) Torsemide (Torsemide) 20 Mg Tablet 60 MG PO DAILY (Reported) As needed Acyclovir (Acyclovir) 800 Mg Tab 1 TABLET PO BID PRN PRN outbreak (Reported) Hydralazine (Hydralazine) 25 Mg Tablet 25 MG PO QID PRN PRN SBP > 170 mmHg Prescribed by: SILVIA MCINTOSH MD Hydromorphone (Hydromorphone) 4 Mg Tablet 4 MG PO Q6H PRN PRN Pain (Reported) Ondansetron (Ondansetron) 4 Mg Tablet 1 TABLET PO Q8H PRN PRN For Nausea/ Vomiting (Reported) oxyCODONE (oxyCODONE) 5 Mg/5 Ml Solution 5 MG PO Q3H PRN PRN For Severe Pain Prescribed by: SILVIA MCINTOSH MD Miscellaneous Medications Latanoprost (Latanoprost) 2.5 Ml Drops 1 GTT BOTH_EYES (Reported) Methotrexate Sodium (Methotrexate) 2.5 Mg Tablet (Reported) Followup Plan Disposition: SNF Follow-up plan Ertapenem 1 gr IV daily for 5 days . Follow up with infectious Disease as outpatient in 5 days Discharge Diet: Low fat, Low Sodium Discharge Activity: No restrictions Follow-up with PCP in: 1 week (Primary care and paliative care ) Time spent 35 minutes Silvia Mcintosh MD Apr 30, 2017 15:39
--- NOTE | 2017-05-06 13:42 | NUR ---
Palliative care note D/A: Pt discharged to [facility] on 04/30/17. Pt had new POLST while working with PC during latest admission. Her POLST dated on 04/29/17 which noted comfort and reasonable medical care were her goals. She wishes to be DNAR/limited additional interventions and wishes to determine use of antibx when infection occurs with comfort as the goal as well as no medically assisted nutrition by tube. POLST is signed by pt and her dtr Felicity Verma. POLST faxed to [facility]. P: No further needs for palliative care at this time. Linda RIZO, CCM
== END 2017-04-30 13:30 | DRG 438 ==
LOC: OSC 11:05 → PCC 04-23 23:01
PROVIDERS: ADMIT Internal Medicine; ATTEND Internal Medicine
PROC: 4A033R1 Measurement of Arterial Saturation, Peripheral, Percutaneous Approach (ICD-10-PCS; principal; 2017-04-23)
DX: K85.80 Other acute pancreatitis without necrosis or infection (principal); J96.00 Acute respiratory failure, unspecified whether with hypoxia or hypercapnia; J98.11 Atelectasis; N12 Tubulo-interstitial nephritis, not specified as acute or chronic; B96.1 Klebsiella pneumoniae [K. pneumoniae] as the cause of diseases classified elsewhere; G47.33 Obstructive sleep apnea (adult) (pediatric); I10 Essential (primary) hypertension; E03.9 Hypothyroidism, unspecified; Z98.84 Bariatric surgery status; Z86.73 Personal history of transient ischemic attack (TIA), and cerebral infarction without residual deficits; E87.5 Hyperkalemia; E83.42 Hypomagnesemia; E83.52 Hypercalcemia; Z66 Do not resuscitate; Z14.8 Genetic carrier of other disease